=== PATIENT | female | born 1995 | race Caucasian/White ===

== ENCOUNTER 2018-03-17 22:33 | Inpatient (IN) | payer SELFPAY ==
[2018-03-17] MEDS ORDERED: Albuterol-Ipratrop 3 mg / 0.5 (3 ml) UD ONE (23:05)
[2018-03-17] MEDS ORDERED: Albuterol-Ipratrop 3 mg / 0.5 (3 ml) UD INH STA ×2 (23:17→23:55)
--- NOTE | 2018-03-17 23:32 | ED PDOC ---
HPI: SOB/CHF/COPD Time Seen by Provider: 03/17/18 22:48 Chief Complaint (Nursing): Respiratory Distress Chief Complaint (Provider): wheezing/cough History Per: Patient History/Exam Limitations: no limitations Onset/Duration Of Symptoms: Days Current Symptoms Are (Timing): Still Present Additional Complaint(s): 23 y/o F with PMHx of seasonal allergies ( worse in Spring time) presents to ED complaining of 1 week of productive cough, associated with clear sputum production, wheezing, nasal congestion. Patient states that her respiratory symptoms started one week ago, but have been getting worse since today, she feels is difficult to breath, her cough is now associated with yellowish sputum production, pleuritic chest pain( pain in her middle of her chest when she is taking deep breath). Also reports upper back pain every time she coughs. Denies fevers, chills, rhinorrhea, N/V, abdominal pain, urinary symptoms, diarrheas. PMD: none Allergies: Apple/Avocado/Banana/Barbour: throat itchy sensation Past Medical History Vital Signs: Last Vital Signs Temp 99.0 F 03/17/18 22:40 Pulse 125 H 03/17/18 22:40 Resp 20 03/17/18 23:19 BP 144/98 H 03/17/18 22:40 Pulse Ox 97 03/18/18 02:53 - Family History Family History: States: No Known Family Hx - Allergies Allergies/Adverse Reactions: Allergies Allergy/AdvReac Type Severity Reaction Status Date / Time apple Allergy ITCHING Verified 03/17/18 23:11 avocado Allergy ITCHING Verified 03/17/18 23:11 banana Allergy ITCHING Verified 03/17/18 23:11 barbour Allergy ITCHING Verified 03/17/18 23:11 Curb-65 Severity Score - CURB-65 Severity Score Confusion: No Respiratory Rate greater than/equal to 30: No Systolic BP <90 or Diastolic BP less than/equal 60mmHg: No Age >64: No Curb-65 Score: 0 Percentage 30-day mortality: 0.6% Wells Criteria for PE - Wells Criteria for Pulmonary Embolism Clinical Signs and Symptoms of DVT: No P.E is #1 Diagnosis, or Equally Likely: No Heart Rate >100: Yes Immobilization at least 3 days;Surgery previous 4 weeks: No Previous, objectively diagnosed PE or DVT: No Hemoptysis: No Malignancy w/treatment within 6 months, or palliative: No Total Score: 1.5 Review of Systems ROS Statement: Except As Marked, All Systems Reviewed And Found Negative Physical Exam - Physical Exam Appears: Positive for: Non-toxic, No Acute Distress Head Exam: Positive for: ATRAUMATIC, NORMOCEPHALIC Skin: Positive for: Normal Color, Warm, Dry. Negative for: Diaphoresis, Pallor , Rash, Cyanosis Eye Exam: Positive for: Normal appearance. Negative for: Conjunctival injection , Scleral icterus ENT: Positive for: TM Is/Are (WNL). Negative for: Nasal Congestion, Pharyngeal Erythema Neck: Positive for: Normal, Supple Cardiovascular/Chest: Positive for: Regular Rate, Rhythm, Tachycardia. Negative for: Chest Non Tender, Edema, Gallop, Murmur Respiratory: Positive for: Rhonchi (diffuse and bilateral), Wheezing (diffuse and bilateral) Back: Positive for: Normal Inspection. Negative for: L CVA Tenderness, R CVA Tenderness Extremity: Negative for: Tenderness, Pedal Edema, Calf Tenderness Neurologic/Psych: Positive for: Alert, Oriented - Laboratory Results Result Diagrams: 03/18/18 01:45 03/18/18 01:45 - ECG O2 Sat by Pulse Oximetry: 97 Nebulizer Treatments/Peak Flow - Duonebs Number of Bronchodilator Doses given?: 1 Medical Decision Making Medical Decision Making: Short of Breath -associated with wheezing -could be 2/2 hyper-reactive airways disease vs undiagnosed Asthma? in exacerbation -Duoneb inh once -Prednisone 50 mg PO once -peak flow pre and post treatment -CXR -re-assess Re-evaluation Oxygen saturation improved significantly after first duoneb respiratory: still diffuse, bilateral wheezing and rhonchi -repeat Duoneb INH once -re-assess Re-evaluation -after second duoneb, still wheezing/rhonchi, however patient states she feels a little bit better -repeat duoneb once, and re-assess pending CXR -Re-evaluation patient still wheezing at physical exam after 4th duoneb discussed with Dr Garcia admit for obs call hospitalist, Dr. Mckeon Disposition - Clinical Impression Clinical Impression: Asthma - Patient ED Disposition Is Patient to be Admitted: Yes Discussed With : Matilda Garcia - Disposition Disposition Time: 02:35 Condition: STABLE Forms: [facility] (Sammarinese) - Pt Status Changed To: Hospital Disposition Of: Observation
[2018-03-18] MEDS ORDERED: Albuterol-Ipratrop 3 mg / 0.5 (3 ml) UD INH STA ×2 (00:34→01:33)
[2018-03-18] MEDS ORDERED: Albuterol-Ipratrop 3 mg / 0.5 (3 ml) UD ONE ×2 (00:57→01:45)
[2018-03-18 02:32] LABS: BASO % 0.3 % (0.0-2.0); EOS # 0.1 K/uL (0.0-0.7); HEMOGLOBIN 12.7 g/dL (12.0-16.0); LYMPH % 8.7 % (20.0-40.0); MEAN CORPUSCULAR HEMOGLOBIN 30.1 pg (27.0-31.0); MEAN CORPUSCULAR HGB CONC 33.5 g/dL (33.0-37.0); MEAN PLATELET VOLUME 10.4 fl (7.2-11.7); MONO # 0.3 K/uL (0.0-0.8); MONO % 2.7 % (0.0-10.0); NEUT # 9.6 K/uL (1.8-7.0); NEUT % 87.3 % (50.0-75.0); PLATELET COUNT 243 K/uL (130-400); RBC 4.22 Mil/uL (3.80-5.20); RED CELL DISTRIBUTION WIDTH 13.9 % (11.5-14.5)
[2018-03-18 02:36] LABS: CALCIUM 9.5 mg/dL (8.4-10.2); GFR AFRICAN-AMERICAN > 60; GFR NON-AFRICAN AMERICAN > 60
[2018-03-18 02:43] LABS: ALB/GLOB RATIO 1.1 (1.0-2.1); ALBUMIN 4.5 g/dL (3.5-5.0); ALT/SGPT 25 U/L (9-52); AST/SGOT 36 U/L (14-36); BLOOD UREA NITROGEN 9 mg/dl (7-17)
--- NOTE | 2018-03-18 03:00 | CP.PCM.HP ---
History of Present Illness - History of Present Illness History of Present Illness: PMD: None Chief Complaint: SOB The patient was seen and examined in the ED HPI: 23 years old female with seasonal allergies, comes with a one week hx of Productive cough, lung congestion, wheezing, SOB, mid upper back and chest pain on coughing. The symptoms have become progressively worse with no fever, nausea, vomits, anorexia, diarrhea nor dysuria. In the ED she received bronchodilators X4 with minimal relief. PMH: Denies PSH: No surgical hx SH: No illegal drug use No Alcohol, occasional Cigarette smoking; Live with friend; works in an [employer] company FH: States: No known family hx Allergies: Apple/Avocado/Banana/Barbour: throat itchy sensation Medications: Mucinex Present on Admission - Present on Admission Any Indicators Present on Admission: No History of DVT/PE: No History of Uncontrolled Diabetes: No Urinary Catheter: No Decubitus Ulcer Present: No Review of Systems - Constitutional Constitutional: Fatigue. absent: Fever, Headache, Lethargy - EENT Eyes: absent: Diplopia, Floaters, Requires Corrective Lenses, Sees Flashes Ears: absent: Decreased Hearing, Ear Discharge, Ear Pain, Tinnitus Nose/Mouth/Throat: absent: Epistaxis, Nasal Congestion, Nasal Discharge, Sinus Pain, Sinus Pressure - Cardiovascular Cardiovascular: Chest Pain, Dyspnea. absent: Edema, Leg Edema, Orthopnea - Respiratory Respiratory: Cough, Dyspnea, Wheezing. absent: Stridor - Gastrointestinal Gastrointestinal: absent: Abdominal Pain, Constipation, Diarrhea, Nausea, Vomiting - Genitourinary Genitourinary: absent: Dysuria, Flank Pain, Hematuria, Urinary Frequency - Musculoskeletal Musculoskeletal: Back Pain. absent: Arthralgias, Joint Swelling, Tingling - Integumentary Integumentary: absent: Pruritus, Rash, Skin Ulcer, Sores, Striae, Swelling - Neurological Neurological: absent: Confusion, Dizziness, Focal Weakness, Tingling, Tremor, Weakness - Psychiatric Psychiatric: absent: Anxiety, Depression, Panic Attacks - Endocrine Endocrine: absent: Palpitations, Polydipsia, Polyphagia, Polyuria - Hematologic/Lymphatic Hematologic: absent: Easy Bleeding, Easy Bruising Past Patient History - Past Medical History & Family History Past Medical History?: No - Past Social History Smoking Status: Heavy Smoker > 10 Cigarettes Daily Chewing Tobacco Use: No Cigar Use: No Alcohol: None Drugs: Denies Home Situation {Lives}: Friends - CARDIAC Hx Cardiac Disorders: No - PULMONARY Hx Respiratory Disorders: No - NEUROLOGICAL Hx Neurological Disorder: No - HEENT Hx HEENT Problems: No - ENDOCRINE/METABOLIC Hx Endocrine Disorders: No - HEMATOLOGICAL/ONCOLOGICAL Hx Blood Disorders: No - INTEGUMENTARY Hx Dermatological Problems: No - MUSCULOSKELETAL/RHEUMATOLOGICAL Hx Musculoskeletal Disorders: No - GASTROINTESTINAL Hx Gastrointestinal Disorders: No - GENITOURINARY/GYNECOLOGICAL Hx Genitourinary Disorders: No - PSYCHIATRIC Hx Psychophysiologic Disorder: No Hx Substance Use: No - SURGICAL HISTORY Hx Surgeries: No Meds Allergies/Adverse Reactions: Allergies Allergy/AdvReac Type Severity Reaction Status Date / Time apple Allergy ITCHING Verified 03/17/18 23:11 avocado Allergy ITCHING Verified 03/17/18 23:11 banana Allergy ITCHING Verified 03/17/18 23:11 barbour Allergy ITCHING Verified 03/17/18 23:11 Physical Exam - Constitutional Appears: In Acute Distress - Head Exam Head Exam: ATRAUMATIC, NORMAL INSPECTION, NORMOCEPHALIC - Eye Exam Eye Exam: EOMI, Normal appearance Pupil Exam: NORMAL ACCOMODATION, PERRL - ENT Exam ENT Exam: Mucous Membranes Moist, Normal Exam, Normal External Ear Exam - Neck Exam Neck exam: Positive for: Full Rom, Normal Inspection. Negative for: Lymphadenopathy, Tenderness - Respiratory Exam Respiratory Exam: Rhonchi, Wheezes. absent: Rales - Cardiovascular Exam Cardiovascular Exam: Tachycardia, REGULAR RHYTHM, +S1, +S2. absent: Gallop - GI/Abdominal Exam GI & Abdominal Exam: Normal Bowel Sounds, Soft. absent: Mass, Organomegaly, Tenderness - Rectal Exam Rectal Exam: Deferred - Extremities Exam Extremities exam: Positive for: full ROM, normal inspection. Negative for: calf tenderness, pedal edema - Back Exam Back exam: NORMAL INSPECTION. absent: CVA tenderness (L), CVA tenderness (R) - Neurological Exam Neurological exam: Alert, CN II-XII Intact, Oriented x3, Reflexes Normal - Psychiatric Exam Psychiatric exam: Normal Affect, Normal Mood - Skin Skin Exam: Dry, Intact, Normal Color, Warm Results - Vital Signs Recent Vital Signs: Last Vital Signs Temp 99.0 F 03/17/18 22:40 Pulse 125 H 03/17/18 22:40 Resp 20 03/17/18 23:19 BP 144/98 H 03/17/18 22:40 Pulse Ox 97 03/18/18 02:53 - Labs Result Diagrams: 03/18/18 01:45 03/18/18 01:45 Labs: Laboratory Results - last 24 hr 03/18/18 03/18/18 01:45 01:45 WBC 11.0 H RBC 4.22 Hgb 12.7 Hct 37.9 MCV 90.0 MCH 30.1 MCHC 33.5 RDW 13.9 Plt Count 243 MPV 10.4 Neut % (Auto) 87.3 H Lymph % (Auto) 8.7 L Williams % (Auto) 2.7 Eos % (Auto) 1.0 Baso % (Auto) 0.3 Neut # (Auto) 9.6 H Lymph # (Auto) 1.0 Williams # (Auto) 0.3 Eos # (Auto) 0.1 Baso # (Auto) 0.0 Sodium 142 Potassium 4.4 Chloride 105 Carbon Dioxide 20 L Anion Gap 21 H BUN 9 Creatinine 0.5 L Est GFR ( Amer) > 60 Est GFR (Non-Af Amer) > 60 Random Glucose 158 H Calcium 9.5 Total Bilirubin 0.7 AST 36 ALT 25 Alkaline Phosphatase 91 Total Protein 8.7 H Albumin 4.5 Globulin 4.3 H Albumin/Globulin Ratio 1.1 - Imaging and Cardiology Chest x-ray Status: Image reviewed by me Additional comment: No infiltrate Assessment & Plan - Assessment and Plan (Free Text) Plan: 23 years old female with seasonal allergies, comes with a one week hx of Productive cough, lung congestion, wheezing, SOB, mid upper back and chest pain on coughing. In the ED she received bronchodilators X4 with minimal relief. #. Bronchospasm most likely secondary to Asthmatic B ronchitis and less likely a food allergy. - Albuterol Q4Hrs and Q2hrs PRN - Methylprednisolone - Mucinex - Fluticasone - O2 at 2L/min via NC #. DVT Prophylaxis with Lovenox #. Code Status: Full - Date & Time Date: 03/18/18 Time: 03:00
[2018-03-18] MEDS ORDERED: Azithromycin 500 MG in Sodium Chloride 0.9% 250 ML IVPB STA (03:27)
[2018-03-18] MEDS ORDERED: CEFTRIAXONE IVPB ONE (03:28)
[2018-03-18] MEDS ORDERED: PED IVPB ONE (03:28)
[2018-03-18] MEDS ORDERED: cefTRIAXone (Rocephin) 1 gm Inj ONE (03:40)
[2018-03-18] MEDS ORDERED: cefTRIAXone 1 GM in Sodium Chloride 0.9% 100 ML IVPB STA (03:42)
[2018-03-18] MEDS: Albuterol 0.083% Inhal Sol (2.5 mg/3 mL) UD INH SCH ×3 (04:00→11:13)
[2018-03-18 04:03] LABS: ABG ALLEN TEST YES; ARTERIAL BLOOD GAS HCO3 21.6 mmol/L (21-28); ARTERIAL BLOOD GAS HEMOGLOBIN 12.5 g/dL (11.7-17.4); ARTERIAL BLOOD GAS O2 CAPACITY 16.8 mL/dL (16-24); ARTERIAL BLOOD GAS O2 CONTENT 16.7 ML/dL (15-23); ARTERIAL BLOOD GAS O2 SAT 99.5 % (95-98); ARTERIAL BLOOD GAS PCO2 33 mm/Hg (35-45); ARTERIAL BLOOD GAS PH 7.39 (7.35-7.45); ARTERIAL BLOOD GAS PO2 83 mm/Hg (80-100)
[2018-03-18 04:49] LABS: BANDS 1 % (0-2); BASOPHIL 1 % (0-2); LYMPHOCYTE 6 % (20-50); MONOCYTE 2 % (0-10); NEUTROPHIL 88 % (42-75); REACTIVE LYMPHOCYTES 2 % (0-0); TOTAL CELLS COUNTED 100
[2018-03-18 04:50] LABS: PLATELET ESTIMATE NORMAL (NORMAL)
[2018-03-18] MEDS: Promethazine/Cod 6.25mg-10mg/5ml Syr UD PO PRN ×2 (05:42→13:03)
[2018-03-18] MEDS ORDERED: Pneumococcal 23-Valent Vaccine IM ONE (06:00)
[2018-03-18 06:17] LABS: BASO % 0.2 % (0.0-2.0); HEMOGLOBIN 12.2 g/dL (12.0-16.0); LYMPH # 0.6 K/uL (1.0-4.3); LYMPH % 5.7 % (20.0-40.0); MEAN CELL VOLUME 89.9 fl (81.0-99.0); MEAN CORPUSCULAR HGB CONC 33.3 g/dL (33.0-37.0); MEAN PLATELET VOLUME 10.2 fl (7.2-11.7); MONO # 0.1 K/uL (0.0-0.8); MONO % 0.8 % (0.0-10.0); NEUT # 9.3 K/uL (1.8-7.0); NEUT % 93.3 % (50.0-75.0); RBC 4.06 Mil/uL (3.80-5.20); RED CELL DISTRIBUTION WIDTH 13.6 % (11.5-14.5)
--- NOTE | 2018-03-18 08:07 | RAD ---
HISTORY: wheezing COMPARISON: Chest radiographs 08/30/2014. TECHNIQUE: Chest PA and lateral FINDINGS: LUNGS: No active pulmonary disease. PLEURA: No significant pleural effusion identified. No pneumothorax apparent. CARDIOVASCULAR: Normal. OSSEOUS STRUCTURES: No significant abnormalities. VISUALIZED UPPER ABDOMEN: Normal. OTHER FINDINGS: None. IMPRESSION: No interval acute cardiopulmonary disease appreciated.
[2018-03-18] MEDS: Enoxaparin 40 mg Syringe SC SCH (08:48)
[2018-03-18] MEDS: guaiFENesin 600 mg ER Tab PO SCH ×2 (08:49→22:56)
[2018-03-18] MEDS: MethylPREDNISolone 40 mg Vial IVP SCH ×2 (08:52→18:03)
[2018-03-18] MEDS ORDERED: Enoxaparin 40 mg Syringe SC SCH (09:00)
[2018-03-18] MEDS ORDERED: methylPREDNISolone 40 MG in Sodium Chloride 0.9% 50 ML IVPB SCH (09:00)
[2018-03-18 12:54] LABS: T4 7.55 ug/dl (5.5-11.0)
[2018-03-18 13:07] LABS: T3 0.991 nmol/L (1.49-2.60)
[2018-03-18] MEDS: Levalbuterol 1.25 MG/3 ML Inhal Soln UD INH SCH ×3 (13:15→19:05)
[2018-03-19] MEDS: MethylPREDNISolone 40 mg Vial IVP SCH ×3 (00:59→16:17)
[2018-03-19] MEDS: Levalbuterol 1.25 MG/3 ML Inhal Soln UD INH SCH ×4 (01:23→19:13)
[2018-03-19] MEDS: Enoxaparin 40 mg Syringe SC SCH (09:34)
[2018-03-19] MEDS: guaiFENesin 600 mg ER Tab PO SCH ×2 (09:34→21:41)
[2018-03-19] MEDS ORDERED: Iodixanol 320 MG/ML 100 ML BOTTLE IV ONE (10:21)
[2018-03-19] MEDS ORDERED: Azithromycin 500 MG in Sodium Chloride 0.9% 250 ML IVPB STA (11:11)
--- NOTE | 2018-03-19 11:23 | CT ---
PROCEDURE: CT Chest with contrast (Pulmonary Angiogram) HISTORY: SOB, Tachycardia COMPARISON: None available. TECHNIQUE: Axial computed tomography images were obtained of the chest in the pulmonary arterial phase of enhancement. Coronal and sagittal reformatted images were created and reviewed. Intravenous contrast dose: 96 mL Visipaque 320 Radiation dose: Total exam DLP = 394.3 mGy-cm. This CT exam was performed using one or more of the following dose reduction techniques: Automated exposure control, adjustment of the mA and/or kV according to patient size, and/or use of iterative reconstruction technique. FINDINGS: PULMONARY ARTERIES: Unremarkable. No pulmonary embolism. AORTA: No acute findings. No thoracic aortic aneurysm. LUNGS: Nonspecific areas of ground-glass in the upper and lower lobes bilaterally. No nodule, mass or pulmonary consolidation. PLEURAL SPACES: Unremarkable. No effusion or pneuomothorax. HEART: Unremarkable. No cardiomegaly. No significant pericardial effusion. LYMPH NODES: No lymphadenopathy. BONES, CHEST WALL: Unremarkable. No fracture or destructive lesion OTHER FINDINGS: Unremarkable. IMPRESSION: Unremarkable CT pulmonary angiogram. No pulmonary embolus. Nonspecific areas of ground-glass in the upper and lower lobes bilaterally, likely infectious/ inflammatory in etiology.
--- NOTE | 2018-03-19 17:10 | CP.PCM.PN ---
Subjective - Date & Time of Evaluation Date of Evaluation: 03/19/18 Time of Evaluation: 10:00 - Subjective Subjective: Pt is afebrile Remains short of breath still with wheezing Tachycardic on vehicle monitor technician denies CP no abd pain Objective - Vital Signs/Intake and Output Vital Signs (last 24 hours): Temp Pulse Resp BP Pulse Ox 98.8 F 110 H 20 116/74 93 L 03/19/18 16:05 03/19/18 16:05 03/19/18 16:05 03/19/18 16:05 03/19/18 16:05 - Medications Medications: Current Medications Enoxaparin Sodium (Lovenox) 40 mg SC DAILY TREMAINE PRN Reason: Protocol Last Admin: 03/19/18 09:34 Dose: 40 mg Fluticasone Propionate (Flonase) 2 spr MARISELA DAILY [facility] Last Admin: 03/19/18 09:33 Dose: 2 spr Guaifenesin (Mucinex La) 600 mg PO Q12 [facility] Last Admin: 03/19/18 09:34 Dose: 600 mg Ceftriaxone Sodium 1 gm/ (Sodium Chloride) 100 mls @ 100 mls/hr IVPB DAILY TREMAINE PRN Reason: Protocol Azithromycin 500 mg/ Sodium (Chloride) 250 mls @ 250 mls/hr IVPB DAILY TREMAINE PRN Reason: Protocol Levalbuterol HCl (Xopenex) 1.25 mg INH RQ6 [facility] Last Admin: 03/19/18 13:20 Dose: 1.25 mg Methylprednisolone (Solu-Medrol) 40 mg IVP Q8 [facility] Last Admin: 03/19/18 16:17 Dose: 40 mg Montelukast Sodium (Singulair) 10 mg PO DAILY [facility] Last Admin: 03/19/18 09:35 Dose: 10 mg Promethazine HCl/Codeine (Phenergan/Codeine Oral Syrup) 10 ml PO Q6 PRN PRN Reason: Cough Last Admin: 03/18/18 13:03 Dose: 10 ml - Labs Labs: 03/18/18 05:30 03/18/18 01:45 - Constitutional Appears: Non-toxic, No Acute Distress - Head Exam Head Exam: ATRAUMATIC, NORMAL INSPECTION, NORMOCEPHALIC - Eye Exam Eye Exam: EOMI, Normal appearance, PERRL Pupil Exam: NORMAL ACCOMODATION, PERRL - ENT Exam ENT Exam: Mucous Membranes Moist, Normal External Ear Exam - Neck Exam Neck Exam: Full ROM. absent: Meningismus - Respiratory Exam Respiratory Exam: Accessory Muscle Use, Rhonchi, Wheezes - Cardiovascular Exam Cardiovascular Exam: Tachycardia, REGULAR RHYTHM, +S1, +S2 - GI/Abdominal Exam GI & Abdominal Exam: Soft, Normal Bowel Sounds. absent: Tenderness - Extremities Exam Extremities Exam: Full ROM, Normal Capillary Refill, Normal Inspection. absent : Calf Tenderness, Pedal Edema - Back Exam Back Exam: Full ROM, NORMAL INSPECTION. absent: CVA tenderness (L), CVA tenderness (R), paraspinal tenderness, vertebral tenderness - Neurological Exam Neurological Exam: Alert, Awake, CN II-XII Intact, Oriented x3 Neuro motor strength exam: Left Upper Extremity: 5, Right Upper Extremity: 5, Left Lower Extremity: 5, Right Lower Extremity: 5 - Psychiatric Exam Psychiatric exam: Normal Affect, Normal Mood - Skin Skin Exam: Dry, Normal Color, Warm Assessment and Plan (1) Asthma with acute exacerbation Status: Acute (2) Acute respiratory insufficiency Status: Acute (3) Sinus tachycardia Status: Acute (4) Acute bronchitis Status: Acute - Assessment and Plan (Free Text) Assessment: 23 y/o lady with hx of Seasonal Allergies came in because of cough and shortness of breath. Found to be wheezing with saturation of 91% on RA. CXR : no infiltrate. Pt was admitted to Telemetry started on IV steroids and bronchodilators. (1) Asthma ( mild intermittent) with acute exacerbation Status: Acute Pt was started on IV Solumedrol, will cont on present dose 40 mg q 8 cont Singulair changed Albuterol to Xopenex due to tachycardia (2) Acute respiratory insufficiency with hypoxia Status: Acute due to desaturation and tachycardia- CTA of PUlm done w/c showed : negative for PE saturation 92-93% on RA Oxygen per NC at 2 liters (3) Sinus tachycardia ? sec to bronchodilators Status: Acute (4) Acute bronchitis, beginning Pneumonia prob bacterial start IV Ceftriaxone and Azithro CT of chest : ground glass infiltrates
[2018-03-20] MEDS: MethylPREDNISolone 40 mg Vial IVP SCH ×3 (00:44→16:30)
[2018-03-20] MEDS: Levalbuterol 1.25 MG/3 ML Inhal Soln UD INH SCH ×3 (01:00→14:04)
[2018-03-20] MEDS: Promethazine/Cod 6.25mg-10mg/5ml Syr UD PO PRN (05:13)
[2018-03-20] MEDS: Enoxaparin 40 mg Syringe SC SCH (08:51)
[2018-03-20] MEDS: guaiFENesin 600 mg ER Tab PO SCH (08:59)
[2018-03-20] MEDS ORDERED: Azithromycin 500 MG in Sodium Chloride 0.9% 250 ML IVPB SCH (09:00)
[2018-03-20 12:18] VITALS: RESP 20
[2018-03-20 16:03] VITALS: BP 110/72; PULSE 106; TEMP 98.6; O2SAT 93
--- NOTE | 2018-03-20 16:04 | CP.PCM.DIS ---
Provider - Provider Date of Admission: 03/19/18 17:09 Attending physician: Woody Duarte Time Spent in preparation of Discharge (in minutes): 35 Diagnosis - Discharge Diagnosis (1) Asthma with acute exacerbation Status: Acute (2) Acute respiratory insufficiency Status: Acute (3) Sinus tachycardia Status: Acute (4) Acute bronchitis Status: Acute Hospital Course - Lab Results Lab Results: Micro Results 03/18/18 01:45 Blood-Venous Blood Culture - Preliminary NO GROWTH AFTER 48 HOURS 03/18/18 02:00 Blood-Venous Blood Culture - Preliminary NO GROWTH AFTER 48 HOURS Most Recent Lab Values WBC 10.0 K/uL (4.8-10.8) 03/18/18 05:30 RBC 4.06 Mil/uL (3.80-5.20) 03/18/18 05:30 Hgb 12.2 g/dL (12.0-16.0) 03/18/18 05:30 Hct 36.5 % (34.0-47.0) 03/18/18 05:30 MCV 89.9 fl (81.0-99.0) 03/18/18 05:30 MCH 30.0 pg (27.0-31.0) 03/18/18 05:30 MCHC 33.3 g/dL (33.0-37.0) 03/18/18 05:30 RDW 13.6 % (11.5-14.5) 03/18/18 05:30 Plt Count 225 K/uL (130-400) 03/18/18 05:30 MPV 10.2 fl (7.2-11.7) 03/18/18 05:30 Neut % (Auto) 93.3 % (50.0-75.0) H 03/18/18 05:30 Lymph % (Auto) 5.7 % (20.0-40.0) L 03/18/18 05:30 Ciales % (Auto) 0.8 % (0.0-10.0) 03/18/18 05:30 Eos % (Auto) 0.0 % (0.0-4.0) 03/18/18 05:30 Baso % (Auto) 0.2 % (0.0-2.0) 03/18/18 05:30 Neut # (Auto) 9.3 K/uL (1.8-7.0) H 03/18/18 05:30 Lymph # (Auto) 0.6 K/uL (1.0-4.3) L 03/18/18 05:30 C[place]es # (Auto) 0.1 K/uL (0.0-0.8) 03/18/18 05:30 Eos # (Auto) 0.0 K/uL (0.0-0.7) 03/18/18 05:30 Baso # (Auto) 0.0 K/uL (0.0-0.2) 03/18/18 05:30 Neutrophils % (Manual) 88 % (42-75) H 03/18/18 01:45 Band Neutrophils % 1 % (0-2) 03/18/18 01:45 Lymphocytes % (Manual) 6 % (20-50) L 03/18/18 01:45 Reactive Lymphs % 2 % (0-0) H 03/18/18 01:45 Monocytes % (Manual) 2 % (0-10) 03/18/18 01:45 Basophils % (Manual) 1 % (0-2) 03/18/18 01:45 Platelet Estimate Normal (NORMAL) 03/18/18 01:45 pCO2 33 mm/Hg (35-45) L 03/18/18 02:53 pO2 83 mm/Hg (80-100) 03/18/18 02:53 HCO3 21.6 mmol/L (21-28) 03/18/18 02:53 ABG pH 7.39 (7.35-7.45) 03/18/18 02:53 ABG Total CO2 21.0 mmol/L (22-28) L 03/18/18 02:53 ABG O2 Saturation 99.5 % (95-98) H 03/18/18 02:53 ABG O2 Content 16.7 ML/dL (15-23) 03/18/18 02:53 ABG Base Excess -4.2 mmol/L (-2.0-3.0) L 03/18/18 02:53 ABG Hemoglobin 12.5 g/dL (11.7-17.4) 03/18/18 02:53 ABG Carboxyhemoglobin 2.3 % (0.5-1.5) H 03/18/18 02:53 POC ABG HHb (Measured) 0.5 % (0.0-5.0) 03/18/18 02:53 ABG Methemoglobin 2.5 % (0.0-3.0) 03/18/18 02:53 ABG O2 Capacity 16.8 mL/dL (16-24) 03/18/18 02:53 Albaro Test Yes 03/18/18 02:53 A-a O2 Difference 104.0 mm/Hg 03/18/18 02:53 Hgb O2 Saturation 94.7 % (95.0-98.0) L 03/18/18 02:53 FiO2 32.0 % 03/18/18 02:53 Crit Value Called To md woody duarte 03/18/18 02:53 Sodium 142 mmol/l (132-148) 03/18/18 01:45 Potassium 4.4 MMOL/L (3.6-5.0) 03/18/18 01:45 Chloride 105 mmol/L (98-107) 03/18/18 01:45 Carbon Dioxide 20 mmol/L (22-30) L 03/18/18 01:45 Anion Gap 21 (10-20) H 03/18/18 01:45 BUN 9 mg/dl (7-17) 03/18/18 01:45 Creatinine 0.5 mg/dl (0.7-1.2) L 03/18/18 01:45 Est GFR ( Amer) > 60 03/18/18 01:45 Est GFR (Non-Af Amer) > 60 03/18/18 01:45 Random Glucose 158 mg/dL (65-105) H 03/18/18 01:45 Calcium 9.5 mg/dL (8.4-10.2) 03/18/18 01:45 Total Bilirubin 0.7 mg/dl (0.2-1.3) 03/18/18 01:45 AST 36 U/L (14-36) 03/18/18 01:45 ALT 25 U/L (9-52) 03/18/18 01:45 Alkaline Phosphatase 91 U/L (38-126) 03/18/18 01:45 Total Protein 8.7 G/DL (6.3-8.2) H 03/18/18 01:45 Albumin 4.5 g/dL (3.5-5.0) 03/18/18 01:45 Globulin 4.3 gm/dL (2.2-3.9) H 03/18/18 01:45 Albumin/Globulin Ratio 1.1 (1.0-2.1) 03/18/18 01:45 Thyroxine (T4) 7.55 ug/dl (5.5-11.0) 03/18/18 12:15 Total T3 0.991 nmol/L (1.49-2.60) L 03/18/18 12:15 TSH 3rd Generation 0.70 mIU/ML (0.46-4.68) 03/18/18 12:15 - Hospital Course Hospital Course: 23 y/o lady with hx of Seasonal Allergies came in because of cough and shortness of breath. Pt got a new cat at home. Found to be wheezing with saturation of 91% on RA. CXR : no infiltrate. Pt was admitted to Telemetry started on IV steroids and bronchodilators. CTA of Chest done ruled out PE. (1) Asthma ( mild intermittent) with acute exacerbation Status: Acute Pt was started on IV Solumedrol and bronchodilators cont Bossmanir changed Albuterol to Xopenex due to tachycardia wheezing and cough improving , pt wants to go home , refused to stay for further Iv steroid tx no more dyspnea on ambulation Pt walked around unit - normal saturation (2) Acute respiratory insufficiency with hypoxia Status: Acute + desaturation and tachycardia- CTA of PUlm done w/c showed : negative for PE saturation now improved to 95-98% on RA Oxygen per NC at 2 liters (3) Sinus tachycardia likely sec to bronchodilators Status: Acute (4) Acute bronchitis, beginning Pneumonia prob bacterial startedon IV Ceftriaxone and Azithro CT of chest : ground glass infiltrates will d/c pt on PO Levaquin Discharge Exam - Head Exam Head Exam: ATRAUMATIC, NORMAL INSPECTION, NORMOCEPHALIC - Eye Exam Eye Exam: EOMI, Normal appearance, PERRL Pupil Exam: NORMAL ACCOMODATION - ENT Exam ENT Exam: Mucous Membranes Moist, Normal External Ear Exam - Neck Exam Neck exam: Full Rom - Respiratory Exam Respiratory Exam: Rhonchi, Wheezes, NORMAL BREATHING PATTERN. absent: Respiratory Distress - Cardiovascular Exam Cardiovascular Exam: REGULAR RHYTHM, +S1, +S2 - GI/Abdominal Exam GI & Abdominal Exam: Normal Bowel Sounds, Soft. absent: Tenderness - Back Exam Back exam: FULL ROM, NORMAL INSPECTION. absent: CVA tenderness (L), CVA tenderness (R), paraspinal tenderness, vertebral tenderness - Neurological Exam Neurological exam: Alert, CN II-XII Intact, Normal Gait, Oriented x3, Reflexes Normal - Psychiatric Exam Psychiatric exam: Normal Affect, Normal Mood - Skin Skin Exam: Dry, Normal Color, Warm Discharge Plan - Discharge Medications Prescriptions: Albuterol Sulfate [Proair Hfa] 8.5 gm IH Q4 PRN #1 inh PRN Reason: Wheezing Levofloxacin [Levaquin] 500 mg PO DAILY #4 tablet Methylprednisolone [Medrol Dose Pack (21 tabs)] 4 mg PO ASDIR #21 mg Montelukast [Singulair] 10 mg PO DAILY #30 tab - Follow Up Plan Condition: IMPROVED Disposition: HOME/ ROUTINE Instructions: Asthma, Adult (DC), Sinus Tachycardia (DC) Additional Instructions: follow up with pmd/FP clinic in 1 week Referrals: [facility] [place] [Outside]
== END 2018-03-20 17:50 | disposition home or self-care (01) | DRG 194 ==
LOC: H.ER 22:33 → UNDOADMOB 03-18 02:33 → H.ERHOLD 03-18 02:33 → H.TEL 03-18 04:43 → OBSVTOIN 03-19 17:09
PROVIDERS: ADMIT Internal Medicine; ATTEND Internal Medicine
PROC: 3E0234Z Introduction of Serum, Toxoid and Vaccine into Muscle, Percutaneous Approach (ICD-10-PCS; principal; 2018-03-18)
DX: J15.9 Unspecified bacterial pneumonia (principal); J45.21 Mild intermittent asthma with (acute) exacerbation; R09.02 Hypoxemia; R00.0 Tachycardia, unspecified; J20.9 Acute bronchitis, unspecified; F17.210 Nicotine dependence, cigarettes, uncomplicated; Z23 Encounter for immunization; Z91.018 Allergy to other foods

== ENCOUNTER 2018-05-27 09:45 | Emergency (ER) | payer SELFPAY ==
[2018-05-27] MEDS ORDERED: Albuterol-Ipratrop 3 mg / 0.5 (3 ml) UD ONE ×3 (10:50→12:49)
[2018-05-27] MEDS: Albuterol-Ipratrop 3 mg / 0.5 (3 ml) UD IH SCH ×6 (10:53→13:21)
--- NOTE | 2018-05-27 11:16 | ED PDOC ---
HPI: SOB/CHF/COPD Time Seen by Provider: 05/27/18 10:09 Chief Complaint (Nursing): Shortness Of Breath Chief Complaint (Provider): Shortness Of Breath History Per: Patient History/Exam Limitations: no limitations Onset/Duration Of Symptoms: Days Current Symptoms Are (Timing): Still Present Additional Complaint(s): 23 year old female with a history of asthma presents to the ED for wheezing and cough. Patient reports that she felt her heart racing as she was heading to work. She states she has had a cough for the past few days. Patient took her inhaler with no improvement which prompted visit to the ED. Her last hospitalization for asthma was in March. Patient denies prior intubation for asthma, chest pain, fever, travel, or any other medical complaints. PMD: none provided Past Medical History Reviewed: Historical Data, Nursing Documentation, Vital Signs Vital Signs: Last Vital Signs Temp 97 F L 05/27/18 16:43 Pulse 78 05/27/18 16:43 Resp 19 05/27/18 16:43 BP 126/78 05/27/18 16:43 Pulse Ox 98 05/27/18 16:43 - Medical History PMH: Asthma Denies: HIV, Chronic Kidney Disease - Surgical History Surgical History: No Surg Hx - Family History Family History: States: Unknown Family Hx - Home Medications Home Medications: Ambulatory Orders Medication Instructions Recorded Albuterol Sulfate [Proair Hfa] 8.5 gm IH Q4 PRN #1 inh 03/19/18 Fluticasone Propionate [Flonase] 2 spr MARISELA DAILY bottle 03/19/18 Methylprednisolone [Medrol Dose 4 mg PO ASDIR #21 mg 03/19/18 Pack (21 tabs)] Montelukast [Singulair] 10 mg PO DAILY #30 tab 03/19/18 guaiFENesin [Mucinex LA] 600 mg PO Q12 tab 03/19/18 Levofloxacin [Levaquin] 500 mg PO DAILY #4 tablet 03/20/18 Albuterol 0.083% [Albuterol 3 ml IH Q4 #100 neb 05/27/18 Sulfate 3 Ml] Azithromycin [Z-Juan C] 250 mg PO DAILY #6 tab 05/27/18 Nebulizer [Aeroeclipse II] 1 each MC DAILY #1 each 05/27/18 predniSONE [predniSONE Tab] 40 mg PO DAILY #8 tab 05/27/18 - Allergies Allergies/Adverse Reactions: Allergies Allergy/AdvReac Type Severity Reaction Status Date / Time apple Allergy ITCHING Verified 05/27/18 10:05 avocado Allergy ITCHING Verified 05/27/18 10:05 banana Allergy ITCHING Verified 05/27/18 10:05 flores Allergy ITCHING Verified 05/27/18 10:05 Review of Systems ROS Statement: Except As Marked, All Systems Reviewed And Found Negative Cardiovascular: Positive for: Other (racing heart) Respiratory: Positive for: Cough, Wheezing Physical Exam - Reviewed Nursing Documentation Reviewed: Yes Vital Signs Reviewed: Yes - Physical Exam Comments: GENERAL APPEARANCE: Patient is awake, alert, oriented x 3, in no acute distress. SKIN: Warm, dry; (-) cyanosis. EYES: (-) conjunctival pallor. ENMT: Mucous membranes moist. Airway patent: (-) stridor. Pharynx: (-) swelling, (-) erythema. NECK: (-) tenderness, (-) stiffness, (-) lymphadenopathy. CHEST AND RESPIRATORY: (+) bilateral expiratory wheezing; (-) rales, (+) scattered rhonchi, (-) rub; breath sounds equal bilaterally; (+) pt can speak in full sentences. HEART AND CARDIOVASCULAR: (+) tachycardia; (-) murmur, (-) gallop. ABDOMEN AND GI: Soft; (-) tenderness. EXTREMITIES: (-) deformity, (-) edema. NEURO AND PSYCH: Mental status as above; (-) focal findings. - ECG O2 Sat by Pulse Oximetry: 93 (RA) Pulse Ox Interpretation: Normal Medical Decision Making Medical Decision Making: Time: 10:21 Initial Plan: --CXR --Duoneb 3 mg IH --Prednisone 60 mg PO --POC urine preg --Nebulizer --Peak flow pre/post 1200 Still wheezing on exam, ordered another 3 duonebs. 1430 On second re-evaluation, patient still with wheezing, P 130s O2sat 90%RA. Patient speaking in full sentences in no respiratory distress. Patient offered further observation in the hospital as she is still wheezing, however the patient is refusing further treatment and observation. States that she feels much better and would rather go home. She feels comfortable going home and believes that she will eventually respond to the steroids in a few hours. Patient refuses further care, evaluation or treatment in the ER. Patient informed of the reasons for the following and planned treatment, which patient understands, however still refuses. Patient informed of the risk and benefits of treatment. Informed that the risk could include worsening of current conditions, undiagnosed conditions, disability or even . Patient understands the following risk and the benefits of treatment. Patient has the capacity to make decisions and still refuses treatment by RN, PA and ER MD. Patient encouraged to return to the ER at any time and to follow up with pmd. Scribe Attestation: Documented by Rubia Serrato, acting as a scribe for Ruchi Junior PA-C Provider Scribe Attestation: All medical record entries made by the Scribe were at my direction and personally dictated by me. I have reviewed the chart and agree that the record accurately reflects my personal performance of the history, physical exam, medical decision making, and the department course for this patient. I have also personally directed, reviewed, and agree with the discharge instructions and disposition. Disposition - Clinical Impression Clinical Impression: Asthma - Patient ED Disposition Is Patient to be Admitted: No Counseled Patient/Family Regarding: Studies Performed, Diagnosis, Need For Followup, Rx Given - Disposition Referrals: [facility] [Outside] Disposition: Against Medical Advice Disposition Time: 14:30 Condition: FAIR Additional Instructions: Thank you for letting us take care of you today. You were treated for asthma. The emergency medical care you received today was directed at your acute symptoms. If you were prescribed any medication, please fill it and take as directed. It may take several days for your symptoms to resolve. Return to the Emergency Department if your symptoms worsen, do not improve, or if you have any other problems. Please contact your doctor in 2 days for re-evaluation and follow up / or call one of the physicians/clinics you have been referred to that are listed on the Patient Visit Information form that is included in your discharge packet. Bring any paperwork you were given at discharge with you along with any medications you are taking to your follow up visit. Our treatment cannot replace ongoing medical care by a primary care provider (PCP) outside of the emergency department. Thank you for allowing the [facility] team to be part of your care today. Prescriptions: Albuterol 0.083% [Albuterol Sulfate 3 Ml] 3 ml IH Q4 #100 neb Azithromycin [Z-Juan C] 250 mg PO DAILY #6 tab Nebulizer [Aeroeclipse II] 1 each MC DAILY #1 each predniSONE [predniSONE Tab] 40 mg PO DAILY #8 tab Instructions: Asthma in Adults, Leaving Against Medical Advice Forms: [facility] [facility] ([place]) - PA / ASSISTANT PRINTER FLOOR COVERING / Resident Statement MD/DO has reviewed & agrees with the documentation as recorded.
--- NOTE | 2018-05-27 11:50 | RAD ---
HISTORY: cough COMPARISON: 02/19/2018 TECHNIQUE: Chest PA and lateral FINDINGS: LUNGS: No focal airspace opacity. Mild peribronchial thickening noted in the hilar regions. PLEURA: No significant pleural effusion identified. No pneumothorax apparent. CARDIOVASCULAR: Normal. OSSEOUS STRUCTURES: No significant abnormalities. VISUALIZED UPPER ABDOMEN: Normal. OTHER FINDINGS: None. IMPRESSION: No focal airspace opacity. Mild peribronchial thickening noted in the hilar regions. Underlying bronchitis bronchiolitis can be considered. Please note that chest radiographs have low sensitivity for small pulmonary nodules. If indicated, chest CT should be obtained.
[2018-05-27 16:44] VITALS: BP 126/78; PULSE 78; RESP 19; TEMP 97
[2018-05-27 19:25] VITALS: O2SAT 93
== END 2018-05-27 16:44 | disposition home or self-care (01) ==
LOC: H.ER 09:45
DX: J44.9 Chronic obstructive pulmonary disease, unspecified (principal)

== ENCOUNTER 2018-09-09 10:59 | Emergency (ER) | payer SELFPAY ==
[2018-09-09] MEDS ORDERED: Albuterol-Ipratrop 3 mg / 0.5 (3 ml) UD ONE (11:16)
[2018-09-09] MEDS ORDERED: Albuterol-Ipratrop 3 mg / 0.5 (3 ml) UD IH STA ×3 (11:18→11:19)
--- NOTE | 2018-09-09 11:22 | ED PDOC ---
HPI: SOB/CHF/COPD Time Seen by Provider: 09/09/18 11:08 Chief Complaint (Nursing): Respiratory Distress History Per: Patient Onset/Duration Of Symptoms: Days (2) Current Symptoms Are (Timing): Still Present Current Respiratory Medications: See Home Med List Severity: Moderate Associated Symptoms: denies: Fever Additional Complaint(s): SOB, wheezing assoc with nonproductive cough x 2 days. Transient improvement with inhaler and nebulizer. Denies fever or chest pain. Past Medical History - Medical History PMH: Asthma Denies: HIV, Chronic Kidney Disease - Family History Family History: States: Unknown Family Hx - Home Medications Home Medications: Ambulatory Orders Medication Instructions Recorded Albuterol Sulfate [Proair Hfa] 8.5 gm IH Q4 PRN #1 inh 03/19/18 Fluticasone Propionate [Flonase] 2 spr MARISELA DAILY bottle 03/19/18 Methylprednisolone [Medrol Dose 4 mg PO ASDIR #21 mg 03/19/18 Pack (21 tabs)] Montelukast [Singulair] 10 mg PO DAILY #30 tab 03/19/18 guaiFENesin [Mucinex LA] 600 mg PO Q12 tab 03/19/18 Levofloxacin [Levaquin] 500 mg PO DAILY #4 tablet 03/20/18 Albuterol 0.083% [Albuterol 3 ml IH Q4 #100 neb 05/27/18 Sulfate 3 Ml] Azithromycin [Z-Juan C] 250 mg PO DAILY #6 tab 05/27/18 Nebulizer [Aeroeclipse II] 1 each MC DAILY #1 each 05/27/18 predniSONE [predniSONE Tab] 40 mg PO DAILY #8 tab 05/27/18 Non-Formulary 1 ea .ROUTE Q6 #1 ea 09/09/18 Prednisone 50 mg PO DAILY #5 tab 09/09/18 - Allergies Allergies/Adverse Reactions: Allergies Allergy/AdvReac Type Severity Reaction Status Date / Time apple Allergy ITCHING Verified 05/27/18 10:05 avocado Allergy ITCHING Verified 05/27/18 10:05 banana Allergy ITCHING Verified 05/27/18 10:05 flores Allergy ITCHING Verified 05/27/18 10:05 Review of Systems ROS Statement: Except As Marked, All Systems Reviewed And Found Negative Constitutional: Negative for: Fever Cardiovascular: Negative for: Chest Pain Respiratory: Positive for: Cough, Shortness of Breath, Wheezing Physical Exam - Reviewed Nursing Documentation Reviewed: Yes Vital Signs Reviewed: Yes - Physical Exam Appears: Positive for: Non-toxic, No Acute Distress Head Exam: Positive for: ATRAUMATIC, NORMAL INSPECTION, NORMOCEPHALIC Skin: Positive for: Normal Color, Warm, DRY Eye Exam: Positive for: EOMI, Normal appearance, PERRL ENT: Positive for: Normal ENT Inspection Neck: Positive for: Normal, Painless ROM Cardiovascular/Chest: Positive for: Regular Rate, Rhythm Respiratory: Positive for: Rhonchi, Wheezing. Negative for: Accessory Muscle U se, Respiratory Distress Gastrointestinal/Abdominal: Positive for: Normal Exam, Soft Back: Positive for: Normal Inspection Extremity: Positive for: Normal ROM Neurologic/Psych: Positive for: Alert, Oriented - Laboratory Results Result Diagrams: 09/09/18 11:25 09/09/18 11:25 - Progress Re-evaluation Time: 15:17 Condition: Improved (Scattered rhonchi no wheezing, pt requesting to go home) Disposition - Clinical Impression Clinical Impression: Asthma with acute exacerbation - Patient ED Disposition Is Patient to be Admitted: No Counseled Patient/Family Regarding: Studies Performed, Diagnosis, Need For Followup, Rx Given - Disposition Referrals: [facility] [Outside] Disposition: Routine/Home Disposition Time: 15:18 Condition: FAIR Prescriptions: Non-Formulary 1 ea .ROUTE Q6 #1 ea Prednisone 50 mg PO DAILY #5 tab Instructions: Asthma in Adults Forms: [facility] (Kazakh)
[2018-09-09 11:35] VITALS: RESP 18
[2018-09-09 11:42] LABS: BASO # 0.1 K/uL (0.0-0.2); BASO % 1.3 % (0.0-2.0); EOS # 0.9 K/uL (0.0-0.7); EOS % 8.7 % (0.0-4.0); HEMOGLOBIN 13.6 g/dL (12.0-16.0); LYMPH # 2.3 K/uL (1.0-4.3); LYMPH % 21.7 % (20.0-40.0); MEAN CELL VOLUME 90.6 fl (81.0-99.0); MEAN CORPUSCULAR HEMOGLOBIN 30.7 pg (27.0-31.0); MEAN CORPUSCULAR HGB CONC 33.9 g/dL (33.0-37.0); MEAN PLATELET VOLUME 9.6 fl (7.2-11.7); MONO # 0.5 K/uL (0.0-0.8); MONO % 4.8 % (0.0-10.0); NEUT # 6.7 K/uL (1.8-7.0); NEUT % 63.5 % (50.0-75.0); RBC 4.42 Mil/uL (3.80-5.20); RED CELL DISTRIBUTION WIDTH 13.6 % (11.5-14.5); WHITE BLOOD COUNT 10.6 K/uL (4.8-10.8)
[2018-09-09 11:43] LABS: ALBUMIN 4.3 g/dL (3.5-5.0); ALT/SGPT 22 U/L (9-52); AST/SGOT 30 U/L (14-36); BLOOD UREA NITROGEN 17 mg/dl (7-17); CALCIUM 9.5 mg/dL (8.4-10.2); GFR NON-AFRICAN AMERICAN > 60
--- NOTE | 2018-09-09 13:08 | RAD ---
Date of service: 09/09/2018 HISTORY: Cough COMPARISON: 05/27/2018 TECHNIQUE: Chest PA and lateral FINDINGS: LUNGS: No active pulmonary disease. PLEURA: No significant pleural effusion identified. No pneumothorax apparent. CARDIOVASCULAR: No aortic atherosclerotic calcification present OSSEOUS STRUCTURES: No significant abnormalities. VISUALIZED UPPER ABDOMEN: Normal. OTHER FINDINGS: None. IMPRESSION: No active disease.
[2018-09-09 15:29] VITALS: BP 123/86; PULSE 100; TEMP 98.4; O2SAT 97
== END 2018-09-09 15:26 | disposition home or self-care (01) ==
LOC: H.ER 10:59
DX: J45.901 Unspecified asthma with (acute) exacerbation (principal); J44.9 Chronic obstructive pulmonary disease, unspecified
CPT/HCPCS: 71046; 80053; 81025; 85025; 96374; 99285; J2930

== ENCOUNTER 2018-09-30 18:36 | Emergency (ER) | payer SELFPAY ==
[2018-09-30] MEDS ORDERED: Albuterol-Ipratrop 3 mg / 0.5 (3 ml) UD INH STA (19:58)
[2018-09-30] MEDS ORDERED: Albuterol-Ipratrop 3 mg / 0.5 (3 ml) UD ONE ×2 (20:07→20:23)
--- NOTE | 2018-09-30 20:26 | ED PDOC ---
HPI: SOB/CHF/COPD Time Seen by Provider: 09/30/18 19:50 Chief Complaint (Nursing): Shortness Of Breath Chief Complaint (Provider): Asthma Exacerbation History Per: Patient History/Exam Limitations: no limitations Onset/Duration Of Symptoms: Days (yesterday night) Current Symptoms Are (Timing): Still Present Current Respiratory Medications: Albuterol (nebulizer) Additional Complaint(s): 23 year old female with a history of asthma presents to the ED with asthma exacerbation. Patient reports she has been feeling sick since yesterday evening associated cough and chest tightness. For the symptoms, she used her albuterol nebulizer, but her chest tightness progressively worsened over the course of the day. However, her cough decreased. She reports subjective fever, rhinorrhea and sore throat. Patient denies any phlegm, rash, swelling or any other medical complaints. She states she was unable to use her nebulizer pump at work, because she did not have it with her. PMD: no regular doctor Past Medical History Reviewed: Historical Data, Nursing Documentation, Vital Signs Vital Signs: Last Vital Signs Temp 100.5 F H 09/30/18 19:19 Pulse 128 H 09/30/18 19:19 Resp 26 H 09/30/18 19:19 BP 150/109 H 09/30/18 19:19 Pulse Ox 92 L 09/30/18 19:19 - Medical History PMH: Asthma Denies: HIV, Chronic Kidney Disease - Surgical History Surgical History: No Surg Hx - Family History Family History: States: No Known Family Hx - Social History Current smoker - smoking cessation education provided: No Ex-Smoker (has not smoked in the last 12 months): Yes (She quit in March after her first astham exacerbation episode) - Home Medications Home Medications: Ambulatory Orders Medication Instructions Recorded Methylprednisolone [Medrol Dose 4 mg PO ASDIR #21 mg 03/19/18 Pack (21 tabs)] RX: Albuterol Sulfate [Proair Hfa] 8.5 gm IH Q4 PRN #1 inh 03/19/18 RX: Fluticasone Propionate 2 spr MARISELA DAILY bottle 03/19/18 [Flonase] RX: Montelukast [Singulair] 10 mg PO DAILY #30 tab 03/19/18 RX: guaiFENesin [Mucinex LA] 600 mg PO Q12 tab 03/19/18 Levofloxacin [Levaquin] 500 mg PO DAILY #4 tablet 03/20/18 Albuterol 0.083% [Albuterol 3 ml IH Q4 #100 neb 05/27/18 Sulfate 3 Ml] Azithromycin [Z-Juan C] 250 mg PO DAILY #6 tab 05/27/18 RX: Nebulizer [Aeroeclipse II] 1 each MC DAILY #1 each 05/27/18 RX: predniSONE [predniSONE Tab] 40 mg PO DAILY #8 tab 05/27/18 RX: Non-Formulary 1 ea .ROUTE Q6 #1 ea 09/09/18 RX: Prednisone 50 mg PO DAILY #5 tab 09/09/18 Montelukast [Singulair] 10 mg PO DAILY #30 tab 09/30/18 Promethazine HCl/Codeine 10 ml PO Q6 PRN #120 ml 09/30/18 [Prometh-Codein 6.25-10 mg/5 ml] RX: Albuterol HFA [Ventolin HFA 90 2 puff IH Q4H PRN #1 inh 09/30/18 mcg/actuation (8 g)] RX: Prednisone 50 mg PO DAILY #4 tablet 09/30/18 levoFLOXacin [Levaquin] 750 mg PO DAILY #5 tab 09/30/18 - Allergies Allergies/Adverse Reactions: Allergies Allergy/AdvReac Type Severity Reaction Status Date / Time apple Allergy ITCHING Verified 09/30/18 19:19 avocado Allergy ITCHING Verified 09/30/18 19:19 banana Allergy ITCHING Verified 09/30/18 19:19 flores Allergy ITCHING Verified 09/30/18 19:19 Review of Systems ROS Statement: Except As Marked, All Systems Reviewed And Found Negative Constitutional: Positive for: Fever (subjective) ENT: Positive for: Nose Discharge, Throat Pain Cardiovascular: Positive for: Other (chest tightness) Respiratory: Positive for: Cough Physical Exam - Reviewed Nursing Documentation Reviewed: Yes Vital Signs Reviewed: Yes - Physical Exam Appears: Positive for: Non-toxic, In Acute Distress Head Exam: Positive for: ATRAUMATIC, NORMOCEPHALIC Skin: Positive for: Warm, Dry Eye Exam: Positive for: EOMI, PERRL ENT: Negative for: Pharyngeal Erythema, Tonsillar Exudate Neck: Positive for: Painless ROM, Supple Cardiovascular/Chest: Positive for: Regular Rate, Rhythm. Negative for: Murmur Respiratory: Positive for: Wheezing (Diffuse expiratory ), Respiratory Distress (mild) Gastrointestinal/Abdominal: Positive for: Soft. Negative for: Tenderness Back: Positive for: Normal Inspection. Negative for: Decreased ROM Extremity: Negative for: Pedal Edema, Calf Tenderness Lymphatic: Negative for: Adenopathy Neurologic/Psych: Positive for: Alert. Negative for: Motor/Sensory Deficits - ECG O2 Sat by Pulse Oximetry: 92 (RA) Pulse Ox Interpretation: Normal Medical Decision Making Medical Decision Making: Time: 1957 Initial Impression: Asthma exacerbation Differential diagnoses include but are not limited to: Pneumonia, viral syndrome, influenza Initial Plan: --U preg --CXR --Duoneb 9 ml INH --Solu-medrol 125 mg IM --Peak flow pre/post treatment --Influenza A B Pt developed fever in ER and given tylenol and ibuprofen as well. 2199 Pt reporting feeling much better after ER treatment. however she has tachycardia and mild hypoxia on reexamination, but improved wheeze. offered observation stay but pt eager to be discharged. Reviewed previous admission earlier this year, and pt had presented with similar symptoms, tachycardia and hypoxia and discharged after hospital course revealed no other pathology. Pt discharged with specific instructions for 24-48 hour followup and to return to ER for worsening symptoms. Scribe Attestation: Documented by Rubia Serrato, acting as a scribe for Brynn Bailey MD Provider Scribe Attestation: All medical record entries made by the Scribe were at my direction and personally dictated by me. I have reviewed the chart and agree that the record accurately reflects my personal performance of the history, physical exam, medical decision making, and the department course for this patient. I have also personally directed, reviewed, and agree with the discharge instructions and disposition. Disposition - Clinical Impression Clinical Impression: Asthma exacerbation, Bronchitis, Sinus tachycardia - Disposition Referrals: [facility] [Outside] - 10/01/18 Disposition: Routine/Home Disposition Time: 23:00 Condition: IMPROVED Prescriptions: RX: Albuterol HFA [Ventolin HFA 90 mcg/actuation (8 g)] 2 puff IH Q4H PRN #1 inh PRN Reason: ASTHMA levoFLOXacin [Levaquin] 750 mg PO DAILY #5 tab Montelukast [Singulair] 10 mg PO DAILY #30 tab RX: Prednisone 50 mg PO DAILY #4 tablet Promethazine HCl/Codeine [Prometh-Codein 6.25-10 mg/5 ml] 10 ml PO Q6 PRN #120 ml PRN Reason: SEVERE COUGH ONLY Instructions: Asthma, Adult (DC), Acute Bronchitis, Adult (DC), Sinus Tachycardia (DC) Forms: [facility] ED School/Work Excuse
[2018-09-30] MEDS ORDERED: Promethazine/Cod 6.25mg-10mg/5ml Syr UD PO STA (21:01)
[2018-09-30] MEDS ORDERED: Promethazine/Cod 6.25mg-10mg/5ml Syr UD ONE (21:35)
[2018-09-30 23:43] VITALS: BP 123/66; PULSE 100; RESP 16; TEMP 98.6
--- NOTE | 2018-10-01 08:55 | RAD ---
Date of service: 09/30/2018 HISTORY: Cough COMPARISON: 09/09/2018 TECHNIQUE: Chest PA and lateral FINDINGS: LINES AND TUBES: None. LUNG AND PLEURA: The lungs are well inflated and clear. No pleural effusion or pneumothorax. HEART AND MEDIASTINUM: The heart is not enlarged. No aortic atherosclerotic calcification present. The hilar and mediastinal contours are within normal limits. SKELETAL STRUCTURES: The bony structures are within normal limits for the patient's age. VISUALIZED UPPER ABDOMEN: Normal. OTHER FINDINGS: None. IMPRESSION: No active pulmonary disease.
[2018-10-03 16:14] VITALS: O2SAT 92
== END 2018-09-30 23:41 | disposition home or self-care (01) ==
LOC: H.ER 18:36
DX: J45.901 Unspecified asthma with (acute) exacerbation (principal); J40 Bronchitis, not specified as acute or chronic; R00.0 Tachycardia, unspecified
CPT/HCPCS: 71046; 81025; 87804; 96372; 99284; J2930

== ENCOUNTER 2018-11-29 01:28 | Emergency (ER) | payer SELFPAY ==
[2018-11-29] MEDS ORDERED: Albuterol-Ipratrop 3 mg / 0.5 (3 ml) UD INH STA (01:48)
[2018-11-29 01:50] VITALS: O2SAT 94
[2018-11-29] MEDS ORDERED: Magnesium Sulfate 2 gm/50 ml 2 GM/50 ML BAG IV STA (02:01)
[2018-11-29] MEDS ORDERED: Magnesium Sulfate 2 gm/50 ml 2 GM/50 ML BAG ONE (02:25)
--- NOTE | 2018-11-29 02:26 | ED PDOC ---
HPI: SOB/CHF/COPD Time Seen by Provider: 11/29/18 01:36 Chief Complaint (Nursing): Respiratory Distress Chief Complaint (Provider): Respiratory Distress History Per: Patient History/Exam Limitations: no limitations Onset/Duration Of Symptoms: Days (x2) Current Symptoms Are (Timing): Still Present Additional Complaint(s): 23 year old female with pmHx of asthma (diagnosed since 03/2018), presents to ED with complaints of shortness of breath, dry cough, and wheezing since yesterday. Patient took her Albuterol with minimal relief. Otherwise, she denies nausea, vomiting, diarrhea, or difficulty urinating. PCP: none provided Past Medical History Reviewed: Historical Data, Nursing Documentation, Vital Signs Vital Signs: Last Vital Signs Temp 99.2 F 11/29/18 01:39 Pulse 128 H 11/29/18 01:39 Resp 35 H 11/29/18 01:45 BP 141/82 11/29/18 01:39 Pulse Ox 94 L 11/29/18 01:45 - Medical History PMH: Asthma Denies: HIV, Chronic Kidney Disease - Surgical History Surgical History: No Surg Hx - Family History Family History: States: Unknown Family Hx - Social History Current smoker - smoking cessation education provided: No Alcohol: None Drugs: Denies - Home Medications Home Medications: Ambulatory Orders Medication Instructions Recorded Albuterol Sulfate [Proair Hfa] 8.5 gm IH Q4 PRN #1 inh 03/19/18 Fluticasone Propionate [Flonase] 2 spr MARISELA DAILY bottle 03/19/18 Methylprednisolone [Medrol Dose 4 mg PO ASDIR #21 mg 03/19/18 Pack (21 tabs)] Montelukast [Singulair] 10 mg PO DAILY #30 tab 03/19/18 guaiFENesin [Mucinex LA] 600 mg PO Q12 tab 03/19/18 Levofloxacin [Levaquin] 500 mg PO DAILY #4 tablet 03/20/18 Albuterol 0.083% [Albuterol 3 ml IH Q4 #100 neb 05/27/18 Sulfate 3 Ml] Azithromycin [Z-Juan C] 250 mg PO DAILY #6 tab 05/27/18 Nebulizer [Aeroeclipse II] 1 each MC DAILY #1 each 05/27/18 predniSONE [predniSONE Tab] 40 mg PO DAILY #8 tab 05/27/18 Non-Formulary 1 ea .ROUTE Q6 #1 ea 09/09/18 Prednisone 50 mg PO DAILY #5 tab 09/09/18 Albuterol HFA [Ventolin HFA 90 2 puff IH Q4H PRN #1 inh 09/30/18 mcg/actuation (8 g)] Montelukast [Singulair] 10 mg PO DAILY #30 tab 09/30/18 Prednisone 50 mg PO DAILY #4 tablet 09/30/18 Promethazine HCl/Codeine 10 ml PO Q6 PRN #120 ml 09/30/18 [Prometh-Codein 6.25-10 mg/5 ml] levoFLOXacin [Levaquin] 750 mg PO DAILY #5 tab 09/30/18 Albuterol 0.5% [Albuterol 0.5% 2.5 mg IH Q6 PRN #1 packet 11/29/18 Inhal Yolanda (2.5 mg/0.5 ml) UD] Benzonatate [Tessalon Perle] 100 mg PO TID PRN #15 capsule 11/29/18 predniSONE [predniSONE Tab] 60 mg PO QAM #12 tab 11/29/18 - Allergies Allergies/Adverse Reactions: Allergies Allergy/AdvReac Type Severity Reaction Status Date / Time apple Allergy ITCHING Verified 11/29/18 01:42 avocado Allergy ITCHING Verified 11/29/18 01:42 banana Allergy ITCHING Verified 11/29/18 01:42 flores Allergy ITCHING Verified 11/29/18 01:42 Review of Systems ROS Statement: Except As Marked, All Systems Reviewed And Found Negative Respiratory: Positive for: Cough (dry), Shortness of Breath, Wheezing Gastrointestinal: Negative for: Nausea, Vomiting, Diarrhea Genitourinary Female: Negative for: Dysuria Physical Exam - Reviewed Nursing Documentation Reviewed: Yes Vital Signs Reviewed: Yes - Physical Exam Appears: Positive for: Uncomfortable, In Acute Distress Head Exam: Positive for: ATRAUMATIC, NORMAL INSPECTION, NORMOCEPHALIC Skin: Positive for: Normal Color Eye Exam: Positive for: Normal appearance, EOMI, PERRL ENT: Positive for: Normal ENT Inspection Neck: Positive for: Normal Cardiovascular/Chest: Positive for: Regular Rate, Rhythm Respiratory: Positive for: Decreased Breath Sounds (and air entry), Accessory Muscle Use, Wheezing (expiratory bilaterally), Respiratory Distress (mild) Gastrointestinal/Abdominal: Positive for: Normal Exam Extremity: Positive for: Normal ROM (upper/lower) Neurologic/Psych: Positive for: Alert, Oriented - Laboratory Results Result Diagrams: 11/29/18 02:16 11/29/18 02:16 - ECG O2 Sat by Pulse Oximetry: 94 (RA) Pulse Ox Interpretation: Normal - Critical Care Total Time (In Min): 30 Documented Critical Care: Time excludes all time spent performint seperately billable procedures Medical Decision Making Medical Decision Making: Initial Impression: 23 year old female with respiratory distress and asthma exacerbation. Initial Plan: * Labs * Duoneb 9ml INH * Magnesium sulfate 2gm in 50ml IV * Solu-medrol 125mg IVP Time: 357 --Labs reviewed: no significant clinical abnormality. Upon provider reevaluation, patient is medically stable, reports marketable improvement in symptoms, and requires no further treatment in the ED at this time. Patient will be discharged home. Counseling was provided and all questions were answered regarding diagnosis. There is agreement to discharge plan. Return if symptoms persist or worsen. Clinical Impression: Asthma with acute exacerbation Scribe Attestation: Documented by Sandy Faith, acting as a scribe for Alvin Salinas MD. Provider Scribe Attestation: All medical record entries made by the Scribe were at my direction and personally dictated by me. I have reviewed the chart and agree that the record accurately reflects my personal performance of the history, physical exam, medical decision making, and the department course for this patient. I have also personally directed, reviewed, and agree with the discharge instructions and disposition. Disposition - Clinical Impression Clinical Impression: Asthma with acute exacerbation - Patient ED Disposition Is Patient to be Admitted: No Counseled Patient/Family Regarding: Studies Performed, Diagnosis, Rx Given - Disposition Disposition: Routine/Home Disposition Time: 03:58 Condition: IMPROVED Prescriptions: Albuterol 0.5% [Albuterol 0.5% Inhal Yolanda (2.5 mg/0.5 ml) UD] 2.5 mg IH Q6 PRN #1 packet PRN Reason: Shortness Of Breath Benzonatate [Tessalon Perle] 100 mg PO TID PRN #15 capsule PRN Reason: Cough predniSONE [predniSONE Tab] 60 mg PO QAM #12 tab Instructions: Asthma in Adults Forms: [facility] (Yoruba)
[2018-11-29 02:37] LABS: BASO # 0.1 K/uL (0.0-0.2); BASO % 0.4 % (0.0-2.0); EOS # 0.5 K/uL (0.0-0.7); EOS % 4.1 % (0.0-4.0); HEMOGLOBIN 13.1 g/dL (12.0-16.0); LYMPH # 1.7 K/uL (1.0-4.3); MEAN CORPUSCULAR HEMOGLOBIN 29.9 pg (27.0-31.0); MEAN CORPUSCULAR HGB CONC 33.2 g/dL (33.0-37.0); MEAN PLATELET VOLUME 9.4 fl (7.2-11.7); MONO # 0.6 K/uL (0.0-0.8); MONO % 4.6 % (0.0-10.0); NEUT # 10.2 K/uL (1.8-7.0); NEUT % 77.9 % (50.0-75.0); NRBC % 0.1 % (0.0-0.0); RBC 4.4 Mil/uL (3.80-5.20); RED CELL DISTRIBUTION WIDTH 14.2 % (11.5-14.5)
[2018-11-29 02:53] LABS: ALB/GLOB RATIO 1.1 (1.0-2.1); ALBUMIN 4.6 g/dL (3.5-5.0); ALT/SGPT 36 U/L (9-52); AST/SGOT 32 U/L (14-36); BLOOD UREA NITROGEN 15 mg/dl (7-17); CALCIUM 9.7 mg/dL (8.4-10.2); GFR NON-AFRICAN AMERICAN > 60
[2018-11-29 04:11] VITALS: BP 130/83; PULSE 117; RESP 19; TEMP 98.9
== END 2018-11-29 04:14 | disposition home or self-care (01) ==
LOC: H.ER 01:28
DX: J45.901 Unspecified asthma with (acute) exacerbation (principal); J44.9 Chronic obstructive pulmonary disease, unspecified; Z79.899 Other long term (current) drug therapy
CPT/HCPCS: 80053; 81025; 85025; 94150; 94640; 96374; 99285; J2930

== ENCOUNTER 2018-12-23 02:44 | Emergency (ER) | payer SELFPAY ==
[2018-12-23 02:56] VITALS: BMI 30.7
[2018-12-23] MEDS ORDERED: Magnesium Sulfate 2 gm/50 ml 2 GM/50 ML BAG IV STA (02:57)
[2018-12-23] MEDS ORDERED: Albuterol-Ipratrop 3 mg / 0.5 (3 ml) UD INH STA (02:57)
[2018-12-23] MEDS ORDERED: Magnesium Sulfate 2 gm/50 ml 2 GM/50 ML BAG ONE (02:58)
--- NOTE | 2018-12-23 03:19 | ED PDOC ---
HPI: SOB/CHF/COPD Time Seen by Provider: 12/23/18 02:46 Chief Complaint (Nursing): Respiratory Distress Chief Complaint (Provider): Respiratory Distress History Per: Patient Additional Complaint(s): 23 y/o female with history of asthma was brought to the ED by paramedics for shortness of breath. Paramedics gave patient x2 duonebs prior to arrival to the ED. Patient has multiple ED visits for the same. Patient is noncompliant with follow up as referred. On arrival patient reports chest tightness with wheezing. Denies fever or productive cough. Past Medical History Reviewed: Historical Data, Nursing Documentation, Vital Signs Vital Signs: Last Vital Signs Temp 98.7 F 12/23/18 02:53 Pulse 118 H 12/23/18 02:53 Resp 22 12/23/18 02:53 BP 104/58 L 12/23/18 02:53 Pulse Ox 98 12/23/18 02:53 - Medical History PMH: Asthma Denies: HIV, Chronic Kidney Disease - Surgical History Surgical History: No Surg Hx - Family History Family History: States: Unknown Family Hx - Social History Current smoker - smoking cessation education provided: No Alcohol: None Drugs: Denies - Home Medications Home Medications: Ambulatory Orders Medication Instructions Recorded Albuterol Sulfate [Proair Hfa] 8.5 gm IH Q4 PRN #1 inh 03/19/18 Fluticasone Propionate [Flonase] 2 spr MARISELA DAILY bottle 03/19/18 Methylprednisolone [Medrol Dose 4 mg PO ASDIR #21 mg 03/19/18 Pack (21 tabs)] Montelukast [Singulair] 10 mg PO DAILY #30 tab 03/19/18 guaiFENesin [Mucinex LA] 600 mg PO Q12 tab 03/19/18 Levofloxacin [Levaquin] 500 mg PO DAILY #4 tablet 03/20/18 Albuterol 0.083% [Albuterol 3 ml IH Q4 #100 neb 05/27/18 Sulfate 3 Ml] Azithromycin [Z-Juan C] 250 mg PO DAILY #6 tab 05/27/18 Nebulizer [Aeroeclipse II] 1 each MC DAILY #1 each 05/27/18 predniSONE [predniSONE Tab] 40 mg PO DAILY #8 tab 05/27/18 Non-Formulary 1 ea .ROUTE Q6 #1 ea 09/09/18 Prednisone 50 mg PO DAILY #5 tab 09/09/18 Albuterol HFA [Ventolin HFA 90 2 puff IH Q4H PRN #1 inh 09/30/18 mcg/actuation (8 g)] Montelukast [Singulair] 10 mg PO DAILY #30 tab 09/30/18 Prednisone 50 mg PO DAILY #4 tablet 09/30/18 Promethazine HCl/Codeine 10 ml PO Q6 PRN #120 ml 09/30/18 [Prometh-Codein 6.25-10 mg/5 ml] levoFLOXacin [Levaquin] 750 mg PO DAILY #5 tab 09/30/18 Albuterol 0.5% [Albuterol 0.5% 2.5 mg IH Q6 PRN #1 packet 11/29/18 Inhal Yolanda (2.5 mg/0.5 ml) UD] Benzonatate [Tessalon Perle] 100 mg PO TID PRN #15 capsule 11/29/18 predniSONE [predniSONE Tab] 60 mg PO QAM #12 tab 11/29/18 Albuterol 0.5% [Albuterol 0.5% 2.5 mg IH Q6 PRN #1 packet 12/23/18 Inhal Yolanda (2.5 mg/0.5 ml) UD] Albuterol HFA [Ventolin HFA 90 1 - 2 puff IH Q6 PRN #1 inhaler 12/23/18 mcg/actuation (8 g)] Methylprednisolone [Medrol Dosepak] 4 mg PO ASDIR #1 pkg 12/23/18 - Allergies Allergies/Adverse Reactions: Allergies Allergy/AdvReac Type Severity Reaction Status Date / Time apple Allergy ITCHING Verified 11/29/18 01:42 avocado Allergy ITCHING Verified 11/29/18 01:42 banana Allergy ITCHING Verified 11/29/18 01:42 flores Allergy ITCHING Verified 11/29/18 01:42 Review of Systems ROS Statement: Except As Marked, All Systems Reviewed And Found Negative Cardiovascular: Positive for: Chest Pain (tightness) Respiratory: Positive for: Shortness of Breath, Wheezing Physical Exam - Reviewed Nursing Documentation Reviewed: Yes Vital Signs Reviewed: Yes - Physical Exam Appears: Positive for: Well, Non-toxic, No Acute Distress Head Exam: Positive for: ATRAUMATIC, NORMAL INSPECTION, NORMOCEPHALIC Skin: Positive for: Normal Color, Warm, DRY Eye Exam: Positive for: EOMI, Normal appearance, PERRL Neck: Positive for: Normal, Painless ROM Cardiovascular/Chest: Positive for: Regular Rate, Rhythm. Negative for: Murmur Respiratory: Positive for: Decreased Breath Sounds, Wheezing (bilateral expiratory), Respiratory Distress (mild) Extremity: Positive for: Normal ROM. Negative for: Pedal Edema, Deformity Neurologic/Psych: Positive for: Alert, Oriented. Negative for: Motor/Sensory Deficits - Laboratory Results Result Diagrams: 12/23/18 03:41 12/23/18 03:41 - ECG O2 Sat by Pulse Oximetry: 98 (RA) Pulse Ox Interpretation: Normal - Critical Care Total Time (In Min): 30 Documented Critical Care: Time excludes all time spent performint seperately billable procedures Medical Decision Making Medical Decision Making: Time: 02:57 Initial Impression: 23 y/o with asthma exacerbation Initial Plan: * EKG * BMP * Urine preg * CBC w/ diff * Duoneb 6 ml * Magnesium sulfate 2 gm * Solumedrol 125 mg 04:47 Labs reviewed no clinically significant abnormalities. Patient reports marked improvement of symptoms. Diagnosis is asthma exacerbation. Provider reinforced need for patient to follow up in the clinic as she has been directed multiple times in the past. Scribe Attestation: Documented by Ruperto Davis acting as a scribe for Alvin Salinas MD. Provider Scribe Attestation: All medical record entries made by the Scribe were at my direction and personally dictated by me. I have reviewed the chart and agree that the record accurately reflects my personal performance of the history, physical exam, medical decision making, and the department course for this patient. I have also personally directed, reviewed, and agree with the discharge instructions and disposition. Disposition - Clinical Impression Clinical Impression: Asthma - Patient ED Disposition Is Patient to be Admitted: No - Disposition Referrals: [facility] [Outside] Disposition: Routine/Home Disposition Time: 04:47 Condition: STABLE Additional Instructions: KAREN THOMSON, thank you for letting us take care of you today. Your provider was Alvin Salinas MD and you were treated for SOB. The emergency medical care you received today was directed at your acute symptoms. If you were prescribed any medication, please fill it and take as directed. It may take several days for your symptoms to resolve. Return to the Emergency Department if your symptoms worsen, do not improve, or if you have any other problems. Please contact your doctor or call one of the physicians/clinics you have been referred to that are listed on the Patient Visit Information form that is included in your discharge packet. Bring any paperwork you were given at discharge with you along with any medications you are taking to your follow up visit. Our treatment cannot replace ongoing medical care by a primary care provider outside of the emergency department. Thank you for allowing the [facility] team to be part of your care today. If you had an X-Ray or CT scan: A Radiologist will review the ED reading if any change in treatment is needed we will contact you. If you had a blood, urine, or wound culture: It will take several days for the results, if any change in treatment is needed we will contact you. If you had an STI test: It will take 48 hours for the results. Please call after 1 week if you have not heard back. Prescriptions: Albuterol 0.5% [Albuterol 0.5% Inhal Yolanda (2.5 mg/0.5 ml) UD] 2.5 mg IH Q6 PRN #1 packet PRN Reason: Shortness Of Breath Albuterol HFA [Ventolin HFA 90 mcg/actuation (8 g)] 1 - 2 puff IH Q6 PRN #1 inhaler PRN Reason: Shortness Of Breath Methylprednisolone [Medrol Dosepak] 4 mg PO ASDIR #1 pkg Instructions: Asthma in Adults Forms: [employer] (Kyrgyz)
[2018-12-23 03:50] LABS: BASO # 0.1 K/uL (0.0-0.2); BASO % 0.5 % (0.0-2.0); EOS # 0.7 K/uL (0.0-0.7); EOS % 5.3 % (0.0-4.0); HEMOGLOBIN 11.2 g/dL (12.0-16.0); LYMPH # 2.6 K/uL (1.0-4.3); LYMPH % 20.1 % (20.0-40.0); MEAN CELL VOLUME 88.3 fl (81.0-99.0); MEAN CORPUSCULAR HEMOGLOBIN 29.2 pg (27.0-31.0); MEAN PLATELET VOLUME 9.1 fl (7.2-11.7); MONO # 0.9 K/uL (0.0-0.8); MONO % 6.5 % (0.0-10.0); NEUT # 8.9 K/uL (1.8-7.0); NEUT % 67.6 % (50.0-75.0); NRBC % 0.1 % (0.0-0.0); RBC 3.85 Mil/uL (3.80-5.20); RED CELL DISTRIBUTION WIDTH 13.9 % (11.5-14.5); WHITE BLOOD COUNT 13.2 K/uL (4.8-10.8)
[2018-12-23 04:04] LABS: BLOOD UREA NITROGEN 18 mg/dl (7-17); CALCIUM 8.9 mg/dL (8.4-10.2); GFR NON-AFRICAN AMERICAN > 60
[2018-12-23 05:24] VITALS: BP 114/64; PULSE 96; RESP 20; TEMP 98.4; O2SAT 99
--- NOTE | 2018-12-23 12:10 | CARD ---
APPROVED REPORT Date of service: 12/23/2018 EKG Measurement Heart [id number] <Conclusion> Sinus tachycardia Otherwise normal ECG
== END 2018-12-23 05:24 | disposition home or self-care (01) ==
LOC: H.ER 02:44
DX: J45.909 Unspecified asthma, uncomplicated (principal); Z91.19 Patient's noncompliance with other medical treatment and regimen
CPT/HCPCS: 80048; 85025; 93005; 96374; 99284; J2930

== ENCOUNTER 2019-03-02 19:16 | Emergency (ER) | payer SELFPAY ==
[2019-03-02 19:16] VITALS: BMI 30.7
[2019-03-02] MEDS ORDERED: Albuterol-Ipratrop 3 mg / 0.5 (3 ml) UD INH STA (19:43)
[2019-03-02] MEDS ORDERED: Albuterol-Ipratrop 3 mg / 0.5 (3 ml) UD IH STA ×2 (19:43)
--- NOTE | 2019-03-02 19:56 | ED PDOC ---
HPI: SOB/CHF/COPD Time Seen by Provider: 03/02/19 19:35 Chief Complaint (Nursing): Respiratory Distress Chief Complaint (Provider): Respiratory Distress History Per: Patient History/Exam Limitations: no limitations Onset/Duration Of Symptoms: Days (x3) Current Symptoms Are (Timing): Still Present Additional Complaint(s): Patient is a 24 year old female with a past medical history of asthma, who presents to the emergency department complaining of wheezing and chest tightness, onset x3 days. She states she has tried albuterol but it has not helped her symptoms. Patient states that this feels like her asthma attacks. Patient denies any nausea, vomiting, or diarrhea but does report to have a cough. She denies any leg pain, travel or hormonal treatment. PMD: no provider Past Medical History Reviewed: Historical Data, Nursing Documentation, Vital Signs - Medical History PMH: Asthma Denies: HIV, Chronic Kidney Disease - Surgical History Surgical History: No Surg Hx - Family History Family History: States: Unknown Family Hx - Home Medications Home Medications: Ambulatory Orders Medication Instructions Recorded Albuterol Sulfate [Proair Hfa] 8.5 gm IH Q4 PRN #1 inh 03/19/18 Fluticasone Propionate [Flonase] 2 spr MARISELA DAILY bottle 03/19/18 Methylprednisolone [Medrol Dose 4 mg PO ASDIR #21 mg 03/19/18 Pack (21 tabs)] Montelukast [Singulair] 10 mg PO DAILY #30 tab 03/19/18 guaiFENesin [Mucinex LA] 600 mg PO Q12 tab 03/19/18 Levofloxacin [Levaquin] 500 mg PO DAILY #4 tablet 03/20/18 Albuterol 0.083% [Albuterol 3 ml IH Q4 #100 neb 05/27/18 Sulfate 3 Ml] Azithromycin [Z-Juan C] 250 mg PO DAILY #6 tab 05/27/18 Nebulizer [Aeroeclipse II] 1 each MC DAILY #1 each 05/27/18 predniSONE [predniSONE Tab] 40 mg PO DAILY #8 tab 05/27/18 Non-Formulary 1 ea .ROUTE Q6 #1 ea 09/09/18 Prednisone 50 mg PO DAILY #5 tab 09/09/18 Albuterol HFA [Ventolin HFA 90 2 puff IH Q4H PRN #1 inh 09/30/18 mcg/actuation (8 g)] Montelukast [Singulair] 10 mg PO DAILY #30 tab 09/30/18 Prednisone 50 mg PO DAILY #4 tablet 09/30/18 Promethazine HCl/Codeine 10 ml PO Q6 PRN #120 ml 09/30/18 [Prometh-Codein 6.25-10 mg/5 ml] levoFLOXacin [Levaquin] 750 mg PO DAILY #5 tab 09/30/18 Albuterol 0.5% [Albuterol 0.5% 2.5 mg IH Q6 PRN #1 packet 11/29/18 Inhal Yolanda (2.5 mg/0.5 ml) UD] Benzonatate [Tessalon Perle] 100 mg PO TID PRN #15 capsule 11/29/18 predniSONE [predniSONE Tab] 60 mg PO QAM #12 tab 11/29/18 Albuterol 0.5% [Albuterol 0.5% 2.5 mg IH Q6 PRN #1 packet 12/23/18 Inhal Yolanda (2.5 mg/0.5 ml) UD] Albuterol HFA [Ventolin HFA 90 1 - 2 puff IH Q6 PRN #1 inhaler 12/23/18 mcg/actuation (8 g)] Methylprednisolone [Medrol Dosepak] 4 mg PO ASDIR #1 pkg 12/23/18 Albuterol Sulfate [Proair Hfa] 0.09 mg IH Q6H PRN #2 inh 03/02/19 predniSONE [predniSONE Tab] 20 mg PO DAILY 3 Days tab 03/02/19 - Allergies Allergies/Adverse Reactions: Allergies Allergy/AdvReac Type Severity Reaction Status Date / Time apple Allergy ITCHING Verified 11/29/18 01:42 avocado Allergy ITCHING Verified 11/29/18 01:42 banana Allergy ITCHING Verified 11/29/18 01:42 flores Allergy ITCHING Verified 11/29/18 01:42 Review of Systems ROS Statement: Except As Marked, All Systems Reviewed And Found Negative Cardiovascular: Positive for: Other (chest tightness) Respiratory: Positive for: Cough, Wheezing Gastrointestinal: Negative for: Nausea, Vomiting, Diarrhea Musculoskeletal: Negative for: Leg Pain Physical Exam - Reviewed Nursing Documentation Reviewed: Yes Vital Signs Reviewed: Yes - Physical Exam Appears: Positive for: Non-toxic, No Acute Distress Head Exam: Positive for: ATRAUMATIC, NORMOCEPHALIC Skin: Positive for: Normal Color, Warm, Dry Eye Exam: Positive for: Normal appearance, EOMI, PERRL ENT: Positive for: Normal ENT Inspection Neck: Positive for: Normal, Painless ROM, Supple Cardiovascular/Chest: Positive for: Regular Rate, Rhythm. Negative for: Murmur Respiratory: Positive for: Wheezing (diffuse). Negative for: Accessory Muscle Use, Respiratory Distress Gastrointestinal/Abdominal: Positive for: Normal Exam, Soft. Negative for: Tenderness Back: Positive for: Normal Inspection. Negative for: L CVA Tenderness, R CVA Tenderness, Vertebral Tenderness Extremity: Positive for: Normal ROM. Negative for: Pedal Edema, Deformity Neurological/Psych: Positive for: Alert, Oriented - ECG ECG: Positive for: Interpreted By Me, Viewed By Me ECG Rhythm: Positive for: Normal QRS, Normal ST Segment, Sinus Rhythm - Progress ED Course And Treament: 2200: Stable. Feels much better. AAOx3. Fu with pcp. Medical Decision Making Medical Decision Making: Time: 1942 Plan: --EKG --ED urine --Albuterol 3 ml IH x3 --Prednisone 60 mg PO --Peak flow pre/post tx Time: 2001 --Patient u- test came back positive. --Notified patient, who denies any abdominal pain, pelvic pain or any vaginal bleeding. Scribe Attestation: Documented by Delvis Henning, acting as a scribe Joanne Jacobs MD. Provider Scribe Attestation: All medical record entries made by the Scribe were at my direction and personally dictated by me. I have reviewed the chart and agree that the record accurately reflects my personal performance of the history, physical exam, medical decision making, and the department course for this patient. I have also personally directed, reviewed, and agree with the discharge instructions and disposition. Disposition - Clinical Impression Clinical Impression: Asthma exacerbation, - Disposition [facility]: [facility]Outside[facility] Disposition Time: 20:00 Condition: STABLE Additional Instructions: Return if not better in 3 days. Prescriptions: Albuterol Sulfate [Proair Hfa] 0.09 mg IH Q6H PRN #2 inh PRN Reason: Wheezing predniSONE [predniSONE Tab] 20 mg PO DAILY 3 Days tab Instructions: Asthma in Adults, Care Forms: [facility] ED School/Work Excuse
[2019-03-02] MEDS ORDERED: Albuterol-Ipratrop 3 mg / 0.5 (3 ml) UD ONE (20:32)
[2019-03-02 20:35] VITALS: RESP 18
[2019-03-02 22:47] VITALS: BP 127/71; PULSE 93; TEMP 98.7; O2SAT 98
== END 2019-03-02 21:50 | disposition home or self-care (01) ==
LOC: H.ER 19:16
DX: J45.901 Unspecified asthma with (acute) exacerbation (principal); O99.52 Diseases of the respiratory system complicating childbirth

== ENCOUNTER 2019-03-17 01:56 | Emergency (ER) | payer SELFPAY ==
[2019-03-17 01:56] VITALS: BMI 30.7
[2019-03-17] MEDS ORDERED: Albuterol-Ipratrop 3 mg / 0.5 (3 ml) UD INH STA (02:16)
[2019-03-17] MEDS ORDERED: Magnesium Sulfate 2 gm/50 ml 2 GM/50 ML BAG IV STA (02:16)
[2019-03-17] MEDS ORDERED: Albuterol-Ipratrop 3 mg / 0.5 (3 ml) UD ONE (02:17)
[2019-03-17] MEDS ORDERED: Magnesium Sulfate 2 gm/50 ml 2 GM/50 ML BAG ONE (02:57)
[2019-03-17 03:10] LABS: BASO # 0.1 K/uL (0.0-0.2); BASO % 0.6 % (0.0-2.0); EOS # 0.6 K/uL (0.0-0.7); EOS % 4.4 % (0.0-4.0); HEMOGLOBIN 11.6 g/dL (12.0-16.0); LYMPH # 2.5 K/uL (1.0-4.3); LYMPH % 18.5 % (20.0-40.0); MEAN CELL VOLUME 87.3 fl (81.0-99.0); MEAN CORPUSCULAR HGB CONC 33.3 g/dL (33.0-37.0); MEAN PLATELET VOLUME 9.5 fl (7.2-11.7); MONO # 0.7 K/uL (0.0-0.8); NEUT # 9.6 K/uL (1.8-7.0); NEUT % 71.5 % (50.0-75.0); NRBC % 0.1 % (0.0-0.0); RBC 4.01 Mil/uL (3.80-5.20); RED CELL DISTRIBUTION WIDTH 14.5 % (11.5-14.5); WHITE BLOOD COUNT 13.4 K/uL (4.8-10.8)
[2019-03-17 03:19] LABS: ALB/GLOB RATIO 1.1 (1.0-2.1); ALBUMIN 4.3 g/dL (3.5-5.0); ALT/SGPT 23 U/L (9-52); AST/SGOT 19 U/L (14-36); BLOOD UREA NITROGEN 10 mg/dl (7-17); CALCIUM 9.4 mg/dL (8.4-10.2); GFR NON-AFRICAN AMERICAN > 60; SQUAMOUS EPITHIAL 1 /hpf (0-5); URINE BILIRUBIN NEGATIVE (NEGATIVE); URINE BLOOD NEGATIVE (NEGATIVE); URINE CLARITY SLIGHTY-CLOUDY (Clear); URINE COLOR YELLOW (YELLOW); URINE GLUCOSE (UA) NEG (NEGATIVE); URINE LEUKOCYTE ESTERASE NEG Leu/uL (Negative); URINE PROTEIN NEGATIVE (NEGATIVE); URINE UROBILINOGEN 0.2-1.0 mg/dL (0.2-1.0)
[2019-03-17 04:23] VITALS: O2SAT 96
--- NOTE | 2019-03-17 04:23 | ED PDOC ---
HPI: SOB/CHF/COPD Time Seen by Provider: 03/17/19 02:08 Chief Complaint (Nursing): Respiratory Distress Chief Complaint (Provider): Respiratory Distress History Per: Patient History/Exam Limitations: no limitations Onset/Duration Of Symptoms: Days (1) Additional Complaint(s): 24 y/o female presents to the ED complaining of shortness of breath for 1 day. Patient comes for multiple visit due to asthma. Patient admits to worsening shortness of breath that is associated with wheezing, dry cough, and chest tightness. Patient is currently 8 weeks . PMD: NONE PROVIDED Past Medical History Reviewed: Historical Data, Nursing Documentation, Vital Signs Vital Signs: Last Vital Signs Temp 98.3 F 03/17/19 02:06 Pulse 101 H 03/17/19 02:06 Resp 21 03/17/19 02:38 BP 118/72 03/17/19 02:06 Pulse Ox 97 03/17/19 02:40 - Medical History PMH: Asthma Denies: HIV, Chronic Kidney Disease - Family History Family History: States: Unknown Family Hx - Home Medications Home Medications: Ambulatory Orders Medication Instructions Recorded Albuterol Sulfate [Proair Hfa] 8.5 gm IH Q4 PRN #1 inh 03/19/18 Fluticasone Propionate [Flonase] 2 spr MARISELA DAILY bottle 03/19/18 Methylprednisolone [Medrol Dose 4 mg PO ASDIR #21 mg 03/19/18 Pack (21 tabs)] Montelukast [Singulair] 10 mg PO DAILY #30 tab 03/19/18 guaiFENesin [Mucinex LA] 600 mg PO Q12 tab 03/19/18 Levofloxacin [Levaquin] 500 mg PO DAILY #4 tablet 03/20/18 Albuterol 0.083% [Albuterol 3 ml IH Q4 #100 neb 05/27/18 Sulfate 3 Ml] Azithromycin [Z-Juan C] 250 mg PO DAILY #6 tab 05/27/18 Nebulizer [Aeroeclipse II] 1 each MC DAILY #1 each 05/27/18 predniSONE [predniSONE Tab] 40 mg PO DAILY #8 tab 05/27/18 Non-Formulary 1 ea .ROUTE Q6 #1 ea 09/09/18 Prednisone 50 mg PO DAILY #5 tab 09/09/18 Albuterol HFA [Ventolin HFA 90 2 puff IH Q4H PRN #1 inh 09/30/18 mcg/actuation (8 g)] Montelukast [Singulair] 10 mg PO DAILY #30 tab 09/30/18 Prednisone 50 mg PO DAILY #4 tablet 09/30/18 Promethazine HCl/Codeine 10 ml PO Q6 PRN #120 ml 09/30/18 [Prometh-Codein 6.25-10 mg/5 ml] levoFLOXacin [Levaquin] 750 mg PO DAILY #5 tab 09/30/18 Albuterol 0.5% [Albuterol 0.5% 2.5 mg IH Q6 PRN #1 packet 11/29/18 Inhal Yolanda (2.5 mg/0.5 ml) UD] Benzonatate [Tessalon Perle] 100 mg PO TID PRN #15 capsule 11/29/18 predniSONE [predniSONE Tab] 60 mg PO QAM #12 tab 11/29/18 Albuterol 0.5% [Albuterol 0.5% 2.5 mg IH Q6 PRN #1 packet 12/23/18 Inhal Yolanda (2.5 mg/0.5 ml) UD] Albuterol HFA [Ventolin HFA 90 1 - 2 puff IH Q6 PRN #1 inhaler 12/23/18 mcg/actuation (8 g)] Methylprednisolone [Medrol Dosepak] 4 mg PO ASDIR #1 pkg 12/23/18 Albuterol Sulfate [Proair Hfa] 0.09 mg IH Q6H PRN #2 inh 03/02/19 predniSONE [predniSONE Tab] 20 mg PO DAILY 3 Days tab 03/02/19 Albuterol 0.5% [Albuterol 0.5% 2.5 mg IH Q6 PRN #1 packet 03/17/19 Inhal Yolanda (2.5 mg/0.5 ml) UD] Albuterol HFA [Ventolin HFA 90 1 - 2 puff IH Q6 PRN #1 inhaler 03/17/19 mcg/actuation (8 g)] Methylprednisolone [Medrol Dosepak] 4 mg PO ASDIR #1 pkg 03/17/19 - Allergies Allergies/Adverse Reactions: Allergies Allergy/AdvReac Type Severity Reaction Status Date / Time apple Allergy ITCHING Verified 11/29/18 01:42 avocado Allergy ITCHING Verified 11/29/18 01:42 banana Allergy ITCHING Verified 11/29/18 01:42 flores Allergy ITCHING Verified 11/29/18 01:42 Review of Systems ROS Statement: Except As Marked, All Systems Reviewed And Found Negative Respiratory: Positive for: Cough (DRY), Shortness of Breath, Wheezing Physical Exam - Reviewed Nursing Documentation Reviewed: Yes Vital Signs Reviewed: Yes - Physical Exam Appears: Positive for: Non-toxic, In Acute Distress (Moderate) Head Exam: Positive for: ATRAUMATIC, NORMOCEPHALIC Skin: Positive for: Normal Color, Warm, Dry Eye Exam: Positive for: EOMI, Normal appearance, PERRL ENT: Positive for: Normal ENT Inspection Neck: Positive for: Normal, Painless ROM, Supple Cardiovascular/Chest: Positive for: Regular Rate, Rhythm. Negative for: Murmur Respiratory: Positive for: Normal Breath Sounds, Rhonchi, Wheezing, Other (bilateral diffuse expedited) Gastrointestinal/Abdominal: Positive for: Normal Exam, Soft. Negative for: Tenderness Back: Positive for: Normal Inspection. Negative for: L CVA Tenderness, R CVA Tenderness Extremity: Positive for: Normal ROM Neurological/Psych: Positive for: Awake, Alert, Normal Tone, Oriented (x3). Negative for: Motor/Sensory Deficits - Laboratory Results Result Diagrams: 03/17/19 03:03 03/17/19 03:03 Lab Results: Troponin I < 0.0120 ng/mL (0.00-0.120) 03/17/19 03:03 Total Bilirubin 0.3 mg/dl (0.2-1.3) 03/17/19 03:03 AST 19 U/L (14-36) 03/17/19 03:03 ALT 23 U/L (9-52) 03/17/19 03:03 Alkaline Phosphatase 73 U/L (38-126) 03/17/19 03:03 Total Protein 8.0 G/DL (6.3-8.2) 03/17/19 03:03 Albumin 4.3 g/dL (3.5-5.0) 03/17/19 03:03 Globulin 3.7 gm/dL (2.2-3.9) 03/17/19 03:03 Albumin/Globulin Ratio 1.1 (1.0-2.1) 03/17/19 03:03 Urine Color Yellow (YELLOW) 03/17/19 03:03 Urine Clarity Slighty-cloudy (Clear) 03/17/19 03:03 Urine pH 6.0 (5.0-8.0) 03/17/19 03:03 Ur Specific [place] 1.018 (1.003-1.030) 03/17/19 03:03 Urine Protein Negative mg/dL (NEGATIVE) 03/17/19 03:03 Urine Glucose (UA) Neg mg/dL (NEGATIVE) 03/17/19 03:03 Urine Ketones Trace mg/dL (NEGATIVE) 03/17/19 03:03 Urine Blood Negative (NEGATIVE) 03/17/19 03:03 Urine Nitrate Negative (NEGATIVE) 03/17/19 03:03 Urine Bilirubin Negative (NEGATIVE) 03/17/19 03:03 Urine Urobilinogen 0.2-1.0 mg/dL (0.2-1.0) 03/17/19 03:03 Ur Leukocyte Esterase Neg Best/uL (Negative) 03/17/19 03:03 Urine RBC (Auto) 5 /hpf (0-3) H 03/17/19 03:03 Urine Microscopic WBC < 1 /hpf (0-5) 03/17/19 03:03 Ur Squamous Epith Cells 1 /hpf (0-5) 03/17/19 03:03 - ECG O2 Sat by Pulse Oximetry: 96 - Critical Care Total Time (In Min): 30 Documented Critical Care: Time excludes all time spent performint seperately billable procedures Medical Decision Making Medical Decision Making: Time: 215 Initial Impression: 24 y/o female presents with acute exacerbation asthma and distress. Initial Plan: -EKG -CMP -Magnesium -Troponin -Urine -ED urine -CBC -Albuterol -Magnesium sulfate 2gm -Solu-Medrol 125mg -urinalysis 5AM Labs reviewed show no clinically significant abnormalities Patient reports marked improvement and is stable for discharge DX Asthma Exacerbation, Scribe Attestation: Documented by Elsy Reardon, acting as a scribe for Alvin Sorto. Provider Scribe Attestation: All medical record entries made by the Scribe were at my direction and personally dictated by me. I have reviewed the chart and agree that the record accurately reflects my personal performance of the history, physical exam, medical decision making, and the department course for this patient. I have also personally directed, reviewed, and agree with the discharge instructions and disposition. Disposition - Clinical Impression Clinical Impression: Asthma with acute exacerbation - Disposition Referrals: [facility] [place] [Outside] Disposition Time: 05:00 Condition: IMPROVED Prescriptions: Albuterol 0.5% [Albuterol 0.5% Inhal Yolanda (2.5 mg/0.5 ml) UD] 2.5 mg IH Q6 PRN #1 packet PRN Reason: Shortness Of Breath Albuterol HFA [Ventolin HFA 90 mcg/actuation (8 g)] 1 - 2 puff IH Q6 PRN #1 inhaler PRN Reason: Shortness Of Breath Methylprednisolone [Medrol Dosepak] 4 mg PO ASDIR #1 pkg Instructions: Asthma and Forms: [employer] (Portuguese)
[2019-03-17 05:10] VITALS: BP 125/78; PULSE 106; RESP 16; TEMP 98.8
--- NOTE | 2019-03-17 10:11 | CARD ---
APPROVED REPORT Date of service: 03/17/2019 EKG Measurement Heart [id number] <Conclusion> Normal sinus rhythm Normal ECG
== END 2019-03-17 05:23 | disposition home or self-care (01) ==
LOC: H.ER 01:56
DX: O99.511 Diseases of the respiratory system complicating pregnancy, first trimester (principal); J44.9 Chronic obstructive pulmonary disease, unspecified; J45.901 Unspecified asthma with (acute) exacerbation; Z3A.08 8 weeks gestation of pregnancy; Z79.899 Other long term (current) drug therapy
CPT/HCPCS: 80053; 81003; 81025; 83735; 84484; 85025; 93005; 94150; 94640; 96365; 96375; 99284; J2930